=== PATIENT | male | born 1960 | race Caucasian/White ===

== ENCOUNTER → 2016-08-08 | Outpatient (CLI) | payer OTHER ==
[~2016-08-08] MED LIST: ALBUAER19 INH; AMLO-110 PO; ASPCH81X PO; ASPI-391 PO; DEXT30TA7 PO; FLUT0.15 NAE; FLUT1INH INH; HYDR25TA4 PO; IBUP-1050 PO; LBT/200 PO; LISI40TA PO; MELO7.5T6 PO; MULT-506 PO; TAMS0.4C38 PO; ZNTT/150 PO
--- NOTE | 2016-08-09 06:45 | PAP/PSG TECHNICIAN REPORT ---
[facility] Eyewear Consultant Polysomnogram Report Study name: None Report date: 08/09/2016 Study date: 08/08/2016 Referring Physician: Dianelys COOL M.D. Name: DENNIS COOL Interpreting Physician: Kacy Cool M.D. Date of : 1960 Eyewear Consultant: Jairon Carrasquillo RPSGT. Sex: Male Age: 55 StudyType: PSG Weight: 231 lbs Height: 55 years, Height 5' 7" BMI: 36.18 Medications: VENTOLIN HFA 108 (90 BASE), ZANTAC 150 MG, NORMODYNE 100 MG, ASPIRIN 81 MG, NORVASC 5 MG, LIPITOR 20 MG, FLOMAX 0.4 MG, HYDROCHLOROTHIAZIDE 25 MG Patient History PATIENT HAS HISTORY OF FEELING TIRED AND FATIGUE. HE GENERALLY STRUGGLES TO MAINTAIN SLEEP AT NIGHT AND FEELS HE DOESN'T GET RESTORATIVE SLEEP. HE ALSO HAS HISTORY OF HYPERTENSION AND SHORTNESS OF BREATH. HE IS HERE TODAY FOR AN EVALUATION OF JORGE. ESS = 7 RM 1 Parameters Monitored NPSG: E1-M2, E2-M1, Fp1-M2, Fp2-M1, F3-M2, F4-M2, F4-M1, C3-M2, C4-M2, C4-M1, O1-M2, O2-M2, O2-M1, T3-M2, T4-M1, P3-M2, P4-M1, CHIN1, CHIN2, HR, EKG, Legs, PFLOW, SNOR, FLOW, CFLOW, Tidal Volume, THOR, ABDO, SpO2, PLTH, CPRESS, ETCO2 Wave, ETCO2, pH Sleep Architecture Sleep Stages Time at Lights Off 9:49:31 PM STAGES Time (min.) TST (%) Time at Lights On 5:28:01 AM Wake 123.0 -- Total Recording Time (TRT) 459.00 min. N1 26.5 8 Total Sleep Period (TSP) 437.5 min. N2 196.0 58 Total Sleep Time (TST) 335.5min. N3 53.0 16 Awake Time 123.5 min. REM 60.0 18 Wake after Sleep Onset 102.0 min. Sleep Efficiency (SE) 73 % Sleep Onset Latency (JOSE) 21.0 min. Number of Stage 1 Shifts None Awakenings 34 Stage Changes 109 Number of REM periods 4 REM 60.0 18 REM Latency 194.5 min. NREM 275.5 82 Body Position Analysis Supine Right Left Side Prone Vertical Total Sleep Time (min.) 144.2 157.0 112.7 269.71 0.0 0.0 Total Sleep Time (%) 20% 47% 34% 80 0% N/A% Total Sleep Time REM (min.) 0.0 38.0 22.0 None 0.0 0.0 Total Sleep Time NREM (min.) 65.8 119.0 90.7 None 0.0 0.0 Intermittent Wake (min.) 78.5 30.8 13.8 None 0.0 0.0 Total Sleep Period (%) 28% None None None None None Arousals Myoclonus (PLM) * Events Count Index Events Count Index Spontaneous 28 5 Events Awake (PLMW) 270 131.7 Respiratory 34 7.0 Events Asleep w/ Arousal (PLMA) 42 7.5 PLM 40 8 Events Asleep w/o Arousal (PLMS) 302 54.0 Snoring 7 1 Total Asleep 344 61.5 Total 109 19 Total 614 80 Respiratory Analysis * CA OA MA CH H RERA Total Count 3 3 0 0 91 2 97 Index 0.5 0.5 0.0 0 16.3 0 17.7 Mean Duration 18.3 16.4 0.0 0.00 22.7 17.3 22.3 Longest Duration 20.5 20.1 0.0 0.00 0.0 18.7 50.2 Respiratory Event Summary Total Supine ~Supine Right Left Prone REM NREM Apneas Count 6 6 0 0 0 N/A 0 6 Index 1.1 5 0 0.0 0.0 N/A 0 1 Hypopneas (4% Desat) Count 91 61 30 16 14 N/A 11 80 Index 16.3 55.6 7 6.1 7.5 N/A 11.0 17.4 Apneas & All Hypopneas Count 97 67 30 16 14 N/A 11 86 Index 17.3 61 7 6 7 N/A 11.0 18.7 Respiratory Events (Loan Clerk+All Hyp+RERA) Count 97 67 32 17 15 N/A 11 86 Index 17.7 61 7 6.5 8.0 N/A 13.0 18.7 Respiratory Related Arousal Count 34 67 8 4 4 N/A 2 37 Index 7.0 28 2 2 2 N/A 2 8 Snoring Analysis Supine Right Left Prone REM NREM Total Snore duration 13.4 min Snores count 191 570 78 N/A 69 770 839 Snore mean duration 1.0 Sec Snores index 174 218 42 N/A 69.0 167.7 150.0 TST with snoring (%) 4.0% SpO2 Analysis Total REM NREM Awake <50% 0.0 min. 0.0 min. 0.0 min. 0.0 min. 51 - 60% 0.0 min. 0.0 min. 0.0 min. 0.0 min. 61 - 70% 0.0 min. 0.0 min. 0.0 min. 0.0 min. 71 - 80% 0.2 min. 0.0 min. 0.0 min. 0.2 min. 81 - 90% 68.6 min. 22.7 min. 40.1 min. 5.8 min. 91 - 100% 381.8 min. 37.3 min. 235.2 min. 109.3 min. Average 93 91 92 95 Minimum SpO2 71 87 83 71 Desaturation Event Index 17.9 14.0 19.2 18.0 # Desat. Events below 89% 35 4 22 9 Time(%) with Saturation below 89% 2.5 0.9 1.1 0.5 Time(min.) with Saturation below 89% 11.2 4.0 4.8 2.3 Heart Rate Analysis End Tidal CO2 Analysis Min (bpm) Max (bpm) Average (bpm) TSP (mins) % of TSP Awake 44 76 58 Above 55 mmHg 0.0 0.0 NREM 42 73 57 50-55 mmHg 0.0 0.0 REM 50 65 57 45-50 mmHg 0.0 0.0 Overall 42 73 57 40-45 mmHg 119.5 35.6 35-40 mmHg 112.8 33.6 30-35 mmHg 78.5 23.4 Average ETCO2 0.1 Supplemental O2 Values Minimum O2 level: None Value Start Time End Time Eyewear Consultant Comments Mr. Cool slept in the right, left and supine positions. PAC's noted. Leg movements noted. No bruxism noted. Snoring was noted and scored as a 4 on a scale of 1 through 5. (0=no snoring, 5=snoring loud enough to be heard through a closed door or down the do way) Mr. Cool awoke to use the restroom 2 times during the night. Mr. Cool stated I slept as well as I do when I am in my own bed. The final report will be interpreted and signed by a sleep physician. The completed physician report will then be placed in the patient medical record. Therapy (cm H2O) 0 TIB (min.) 458.5 TST (min.) 335.5 Sleep Onset (min.) 21.0 REM Onset From Sleep (min.) 194.5 Sleep Efficiency % 73 Wakefulness (%) 27 Wakefulness (min.) 123.5 NREM 1 (%) 8 NREM 1 (min.) 26.5 NREM 2 (%) 58 NREM 2 (min.) 196.0 NREM 3 (%) 16 NREM 3 (min.) 53.0 REM (%) 18 REM (min.) 60.0 # Arousals 109 Arousal Index 19 # Snore 839 Snore Index 150.0 AHI 17.3 AHI Supine 61 AHI Non-Supine 7 NREM AHI 18.7 REM AHI 11.0 RDI 17.7 # Obstructive Apnea 3 # Central Apnea 3 # Mixed Apnea 0 # Hypopneas 91 RERAs 2 Total Respiratory Events 110 Time Below SpO2 89% (min.) 8.8 Mean NREM SpO2 (%) 92 Mean REM SpO2 (%) 91 Mean Sleep SpO2 (%) 92 Min NREM SpO2 (%) 83 Min REM SpO2 (%) 87 Position Supine (min.) 144.2 Position Non-supine (min.) 269.7 LM Index Sleep 61.5 LM Index NREM 71.9 LM Index REM 14.0 Mean Heart Rate (bpm) 57 Min Heart Rate (bpm) 42
--- NOTE | 2016-08-13 11:35 | POLYSOMNOGRAPH REPORT ---
REFERRING PERSON: Dr. Jovan Cantrell. TUFTING SUPERVISOR: Jairon Carrasquillo. Mr. Cantrell is a 55-year-old male complaining of excessive daytime sleepiness and unrefreshing sleep. He also has sleep maintenance insomnia. He has a history of hypertension and obesity. His [place] sleepiness scale score on the evening of this study is 7. BMI is 36.18. Following the technical and digital specifications of the [place] [employer] (AASM) a standard diagnostic polysomnogram was performed monitoring EEG, EOG, EMG (chin and leg deviations), oxygen saturation, body position, digital video, respiratory effort and airflow. The sleep Stage and event scoring was based on the AASM Manual for the Scoring of Sleep and Associated Events 2007 edition. Apneas are defined as a drop in the peak thermal sensor excursion by >90% of baseline for at least 10 seconds. Hypopneas were scored using the 4% oxygen desaturation rule (4A-Medicare) and a decrease in the nasal pressure excursions by >30% of baseline for at least 10 seconds. Respiratory effort-related arousal (RERA's) is defined as a sequence of breaths lasting at least 10 seconds characterized by increasing respiratory effort or flattening of the nasal pressure waveform leading to an arousal from sleep when the sequence of breaths does not meet criteria for an apnea or hypopnea. Apnea Hypopnea index (AHI) is defined as the number of apneas and hypopneas occurring in an hour of sleep. Respiratory disturbance index (RDI) is defined as the number of apneas, hypopneas, and RERA's occurring in an hour of sleep. Mr. Cantrell's total sleep period time was 437.5 minutes. Total sleep time was 335.5 minutes. Sleep efficiency was 73%. Latency to sleep onset was 21 minutes with wake after sleep onset of 102 minutes. Total non-REM sleep time is 275.5 minutes. He spent 8% of that time in N1 sleep, 58% in N2 sleep and 16% in N3 sleep. REM latency was 194.5 minutes. Total REM sleep time was 60 minutes or 18% of total sleep time. There were 109 cortical arousals from sleep. Thirty-four of these arousals were due to respiratory events, 40 due to periodic limb movements of sleep and 7 were due to snoring. The remaining 28 were spontaneous. There were 344 periodic limb movements noted on this test. Limb movement index was 61.5. Limb movement with arousal index was 7.5. There were 3 obstructive, 3 central and no mixed apneas on this test. There were 91 hypopneas and 2 RERA. Apnea-hypopnea index was 17.3 consistent with moderately severe sleep apnea. The supine AHI was 7, REM AHI 11 and non-REM AHI is 18.7. There were 839 snoring events recorded on this test. Total sleep time with snoring was 4%. Mean saturation was 93% with desaturations less than 89% for 11.2 minutes of sleep time. Lowest saturation was 71%. There was no cardiac ectopy other than occasional premature atrial complexes noted on EKG monitoring. Heart rates ranged from a low of 42 beats per minute to a high of 73 beats per minute. End-tidal CO2 was recorded on this test. End-tidal CO2s were between 40 and 45 mmHg for 35.6% of total sleep period time, between 35-40 mmHg for 33.6% of total sleep period time and between 30 and 35 mmHg for 23.4% of total sleep period time. IMPRESSION AND PLAN: Mr. Cantrell is a 55-year-old male with evidence of moderately severe sleep apnea and mild nocturnal hypoxemia on this sleep study. 1. This patient would likely benefit from positive airway pressure therapy. He should return to the sleep lab for a full night titration and then based on those results be started on equipment at home. A download from his machine should be reviewed in 1 month both to check compliance as well as AHI and further pressure adjustments can occur at that time. 2. Alternatively, this patient could be started on auto titrating CPAP with pressures of 5-15 cm. A download from his machine can be reviewed in 1 month and he could be set to optimal pressure at that time. 3. If this patient is unwilling or unable to tolerate CPAP therapy, he could be referred to ear, nose and throat or oral surgery/dental medicine (if appropriate) to discuss alternative treatments for sleep disordered breathing.
== END | disposition home or self-care (01) ==
LOC: C.NEUR 21:00
PROVIDERS: ATTEND Family Medicine
DX: R06.02 Shortness of breath (principal); G47.30 Sleep apnea, unspecified; I10 Essential (primary) hypertension

== ENCOUNTER → 2016-10-25 | Day surgery (SDC) | payer OTHER ==
[2016-10-16 15:12] VITALS: Ht 170.2 cm; Wt 106.8 kg
[~2016-10-25] VITALS: Ht 170.2 cm; Wt 106.8 kg
[~2016-10-25] MED LIST changes: -ALBUAER19 INH; +DEXAMETHASONE SOD INJ 4 MG/ML VIAL ONE; -DEXT30TA7 PO; -IBUP-1050 PO; +LIDOCAINE HCL 1% MPF 5 ML VIAL ONE; -MELO7.5T6 PO; -MULT-506 PO
--- NOTE | 2016-10-25 08:43 | History & Physical Bridge - SC ---
H&P Re-Evaluation Bridge Note: I have examined the patient, reviewed the History & Physical and in the interval since the performance of the History & Physical I have noted the following changes of clinical significance: No changes noted
[2016-10-25 09:05] VITALS: TEMP 36.8
--- NOTE | 2016-10-25 09:07 | Discharge Instructions-SurgCtr ---
Discharge Instructions Date of Service Oct 25, 2016. Visit Reason for Visit: Spinal Stenosis Discharge Discharge Diagnosis / Problem: stenosis Discharge Goals Goal(s): Improve function Activity Recommendations Activity Limitations: resume your previous activity Anesthesia . Post Anesthesia Instructions: If you have had General Anesthesia or IV Sedation: * Do not drive today. * Resume driving when surgeon permits. * Do not make important decisions or sign legal documents today. * Call surgeon for: 1. Temperature elevations greater than 101 degrees F. 2. Uncontrollable pain. 3. Excessive bleeding. 4. Persistent nausea and vomiting. 5. Medication intolerance (nausea, vomiting or rash). * For nausea and vomiting use only clear liquids such as: tea, soda, bouillon until nausea subsides, then gradually increase diet as tolerated. * If you have any concerns or questions, call your surgeon's office. If physician is unavailable and it is an emergency, call 911 or go to the nearest emergency room. . Diet Recommendations Home Diet: no limitations Procedures Procedures Performed: EPIDURAL STEROID INJECTION L4-L5, L5-S1 Pending Studies Studies pending at discharge: no Medical Emergencies . Who to Call and When: Medical Emergencies: If at any time you feel your situation is an emergency, please call 911 immediately. . Non-Emergent Contact Non-Emergency issues call your: Primary Care Provider . . "Provider Documentation" section prepared by Estuardo Owusu. .
--- NOTE | 2016-10-25 09:07 | [facility] Post Operative Brief Note ---
Immediate Operative Summary Operative Date Oct 25, 2016. Pre-Operative Diagnosis DISC HERNIATION L4-L5, L5-S1 Post-Operative Diagnosis SAME Procedure(s) Performed EPIDURAL STEROID INJECTION L4-L5, L5-S1 Surgeon DR. Maureen LOWRY Bi Data Architect Surgeon(s) 0 Estimated Blood Loss 0 Findings stenosis Specimens 0 Complication(s) None Disposition Recovery Room / PACU
[2016-10-25 09:18] VITALS: BP 127/81; PULSE 72; O2SAT 95
--- NOTE | 2016-10-25 09:19 | OPERATIVE REPORT ---
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 POSTOPERATIVE DIAGNOSIS: Same. PROCEDURE: Include epidural steroid injection L4-5, L5-S1 lumbar spine. SURGEON: Dr. Owusu. The patient was taken to the minor procedure room and placed prone, prepped, draped sterile. The 22-gauge Tuohy needle advanced to the epidural space at 4-5 and 5-1. One mL of dexamethasone injected to each area without incident. He tolerated it well. Returned to PACU stable. No complications. I attest to the content of the Intraoperative Record and any orders documented therein. Any exception s are noted below.
== END | disposition home or self-care (01) ==
LOC: X.SURG 07:34
PROVIDERS: ATTEND Orthopaedic Surgery Orthopaedic Surgery of the Spine
DX: M48.06 Spinal stenosis, lumbar region (principal); I10 Essential (primary) hypertension; J45.909 Unspecified asthma, uncomplicated; Z90.89 Acquired absence of other organs

== ENCOUNTER → 2017-07-10 | Outpatient (CLI) | payer OTHER ==
[~2017-07-10] MED LIST changes: -DEXAMETHASONE SOD INJ 4 MG/ML VIAL ONE; -LIDOCAINE HCL 1% MPF 5 ML VIAL ONE; +RANI150T85 PO; -ZNTT/150 PO
--- NOTE | 2017-07-10 13:23 | DIAGNOSTIC IMAGING REPORT ---
(CHEST) THORAX WITHOUT CT DOSE: 1008.12 mGy.cm CLINICAL HISTORY: 56 years-old Male with R91.1 Lung nodule. Follow-up study in a patient with lung nodules TECHNIQUE: Multiaxial CT images of the chest were performed without contrast. A dose lowering technique was utilized adhering to the principles of ALARA. COMPARISON: Chest CT 01/20/2016 FINDINGS: The thyroid appears homogeneous. No pathologically enlarged lymph nodes of the chest identified. Calcified left hilar lymph nodes compatible with prior granulomatous disease. Heart is normal in size with coronary arterial disease. No large pericardial effusion. Thoracic aorta is normal in course and caliber without aneurysm. There is no pneumothorax, pleural effusion or focal airspace consolidation. Subpleural cystic changes are noted within the medial right lung apex. Calcified granulomas of the left upper lobe are noted. Minimal subsegmental tree-in-bud nodularity of the right lower lobe is seen on image 200 series 4. Several scattered solid noncalcified pulmonary nodules redemonstrated. Subpleural linear 6 mm nodule of the lingula noted on image 157 series 4, unchanged. 3 mm nodule of the left lung apex, image 79 series 4, also unchanged. A few scattered 2 to 3 mm nodules throughout the right lung also appear unchanged. There is a subpleural 4 mm nodule of the right upper lobe on image 19 series 4, also unchanged. No new or enlarging pulmonary nodules identified. Central airways are patent. Calcified glomus are seen throughout the spleen. Punctate nonobstructing calculus of the interpolar left kidney. Cholelithiasis. Hepatic steatosis. Soft tissues are unremarkable. Bones appear intact. IMPRESSION: 1. Unchanged size and appearance of the scattered bilateral solid pulmonary nodules measuring up to 6 mm. 2. Minimal subsegmental tree-in-bud nodularity of the right lower lobe suggests infectious or inflammatory bronchiolitis. 3. Prior granulomatous disease. 4. Hepatic steatosis. 5. Cholelithiasis. 6. Punctate nonobstructing calculus of the interpolar right kidney. Please refer to below summary of Fleischner criteria recommendations for follow-up of incidental CT nodules (oDnna Bonilla, Guidelines for management of small pulmonary nodules detected on CT scans: A statement from the Fleischner Society, Radiology 237: [phone].) SOLID NODULES Multiple nodules size: <6 mm * Low risk patients: no routine follow-up * high risk patients: optional CT at 12 months Multiple nodules size: 6-8 mm * Low risk patients: follow-up at 3-6 months, then consider further follow-up at 18-24 months * high risk patients: follow-up at 3-6 months, then at 18-24 months if no change Note: newly detected indeterminate nodule in persons 35 years of age or older. * Low risk patients: minimal or absent history of smoking and/or other known risk factors * high risk patients: history of smoking or of other known risk factors (e.g. first degree relative with lung cancer, or exposure to asbestos, radon, uranium) * if a nodule up to 8 mm is partly solid or is ground glass further follow-up is required after 24 months to exclude possible slow growing adenocarcinoma (CATRACHO) The above report was generated using voice recognition software. It may contain grammatical, syntax or spelling errors. Electronically signed by: Isaac Kapoor M.D. 07/10/2017 1:22 PM Dictated Date/Time: 07/10/2017 1:12 PM
== END | disposition home or self-care (01) ==
LOC: C.CTS 13:04
PROVIDERS: ATTEND Internal Medicine
DX: R91.1 Solitary pulmonary nodule (principal); K76.0 Fatty (change of) liver, not elsewhere classified; K80.20 Calculus of gallbladder without cholecystitis without obstruction; N20.0 Calculus of kidney

== ENCOUNTER → 2017-08-23 | Outpatient (CLI) | payer OTHER ==
[2017-08-23 09:34] LABS: BASO % 0.4 %; BASO ABS # 0.03 K/uL (0-0.2); EOS % 3.7 %; EOS ABS # 0.28 K/uL (0-0.5); HEMATOCRIT 40.9 % (42-52); HEMOGLOBIN 13.6 g/dL (14.0-18.0); IG# 0.02 K/uL (0.00-0.02); LYMPH % 27.5 %; LYMPH ABS # 2.09 K/uL (1.2-3.4); MEAN CELL VOLUME 83.3 fL (80-100); MEAN CORPUSCULAR HEMOGLOBIN 27.7 pg (25-34); MEAN CORPUSCULAR HGB CONC 33.3 g/dl (32-36); MEAN PLATELET VOLUME 9.9 fL (7.4-10.4); MONO % 7.8 %; MONO ABS # 0.59 K/uL (0.11-0.59); NEUT % 60.3 %; NEUT ABS # 4.59 K/uL (1.4-6.5); PLATELET COUNT 263 K/uL (130-400); RED CELL DISTRIBUTION WIDTH SD 42.4 fL (36.4-46.3)
[2017-08-23 10:07] LABS: ALBUMIN 4.1 gm/dl (3.4-5.0); ALT/SGPT 37 U/L (12-78); AST/SGOT 15 U/L (15-37); BLOOD UREA NITROGEN 23 mg/dl (7-18); CARBON DIOXIDE 26 mmol/L (21-32); CHOLESTEROL 204 mg/dl (0-200); CREATININE 1.22 mg/dl (0.60-1.40); GLUCOSE 113 mg/dl (70-99); LIPASE 167 U/L (73-393); POTASSIUM 3.7 mmol/L (3.5-5.1); SODIUM 139 mmol/L (136-145)
[2017-08-23 10:11] LABS: ALKALINE PHOSPHATASE 52 U/L (45-117); LDL CHOLESTEROL CALCULATED 107 mg/dl
== END ==
LOC: C.LAB1850 08:26
PROVIDERS: ATTEND Internal Medicine
DX: R31.29 Other microscopic hematuria (principal); E78.5 Hyperlipidemia, unspecified; I10 Essential (primary) hypertension; N40.0 Benign prostatic hyperplasia without lower urinary tract symptoms; D64.9 Anemia, unspecified; R74.8 Abnormal levels of other serum enzymes

== ENCOUNTER 2018-09-13 01:28 | Inpatient (IN) ==
--- OUTSIDE RECORDS SUMMARY | 2018-09-13 01:31 | External Medical Summary | Continuity of Care Document ---
:1960 Author Name Kristy Vanegas, Provider Address Unavailable Unavailable , Care Team Providers Name Role Phone Luke Vanegas, Kamilah Unavailable [email or web address], [email or web address] CANDIE STOKES M.D., KAMILAH V Unavailable Un available Unavailable Unavailable Unavailable Problems Esophageal reflux (530.81) (K21.9) Tiredness (780.79) (R53.83) Internal hemorrhoids (455.0) (K64.8) Colon polyps (211.3) (K63.5) Dust exposure (V87.39) (Z77.29) Ganglion cyst of wrist, right (727.41) (M67.431) Sleep apnea (780.57) (G47.30) Diverticulosis of colon (562.10) (K57.30) Prostatic hyperplasia (600.90) (N40.0) Screen for colon cancer (V76.51) (Z12.11) Elevated lipase (790.5) (R74.8) Microscopic hematuria (599.72) (R31.29) Hypertension (401.9) (I10) Reactive airway disease (493.90) (J45.909) Multiple pulmonary nodules (793.19) (R91.8) Cramp of limb (729.82) (R25.2) Bilateral numbness and tingling of arms and legs (782.0) (R2 0.0) Hyperlipidemia (272.4) (E78.5) Anemia (285.9) (D64.9) Lung nodule (793.11) (R91.1) Back pain (724.5) (M54.9) Flu vaccine need (V04.81) (Z23) Hyperglycemia (790.29) (R73.9) Chronic low back pain (724.2) (M54.5) Lumbar disc disease with radiculopathy (722.10) (M51.16) Facet hypertrophy of lumbar region (721.3) (M47.816) Tingling (782.0) (R20.2) Sacral radiculopathy (724.4) (M54.18) Lumbosacral radiculopathy (724.4) (M54.17) Disc degeneration, lumbar (722.52) (M51.36) Acute bronchitis (466.0) (J20.9) Allergies and Adverse Reactions Atorvastatin Calcium TABS (Allergy) hydrALAZINE HCl TABS (Allergy) Reaction: Headache Procardia (Allergy) Medications methylPREDNISolone 4 MG Oral Tablet Therapy Pack; 1 pa ck as directed KENYATTA Merchant Start: 17-Jul-2018 Quantity: 1 21 Tablet Pack Refills: 0 Lovastatin 10 MG Oral Tablet; TAKE 1 TABLET AT BEDTIME . Romina Butler Start: 05-Sep-2017 Quantity: 90 Ralitsa Refills: 1 Lisinopril 40 MG Oral Tablet; take 1 tablet by mouth o nce daily as directed Romina Butler Start: 06-Aug-2018 Quantity: 90 Ralitsa Refills: 1 Labetalol HCl - 200 MG Oral Tablet; take 1 tablet by m outh once daily Romina Butler Start: 06-Aug-2018 Quantity: 60 Ral[place]a Refills: 1 amLODIPine Besylate 10 MG Oral Tablet; TAKE 1 TABLET D AILY DIRECTED. Romina Butler Start: 16-Aug-2016 Quantity: 1 Ralitsa 90 Tablet Bottle Refills: 3 hydroCHLOROthiazide 25 MG Oral Tablet; TAKE ONE TABLET BY MOUTH ONCE DAILY Romina Butler Start: 04-Jan-2018 Quantity: 90 [place]al[place]a Refills: 3 raNITIdine HCl - 150 MG Oral Tablet; TAKE 1 TABLET ANA PAULA RY 12 HOURS DAILY. Romina Butler Start: 13-Jul-2013 Quantity: 60 Ral[place]a Refills: 5 Aspirin EC 81 MG Oral Tablet Delayed Release; TAKE 1 T ABLET DAILY. Yuliya Stokes M.D. Start: 15-Feb-2017 Refills: 5 [place]al[place] Excedrin Extra Strength 250-250-65 MG Or al Tablet; TAKE up tp 3 tablets DAILY. Romina Butler Start: 16-Aug-2016 Refills: 0 [place]al[place]a Breo Ellipta 100-25 MCG/INH Inhalation A erosol Powder Breath Activated; USE 1 INHALATION ONCE DAILY. Romina Butler Start: 16-Aug-2016 Quantity: 1 [place] Refills: 5 Cyclobenzaprine HCl - 5 MG Oral Tablet; TAKE 1 TABLET 2 TIMES DAILY NEEDED FOR PAIN KENYATTA Merchant Tia Start: 26-May-2018 Quantity: 30 Refills: 0 Tamsulosin HCl - 0.4 MG Oral Capsule; TAKE ONE CAPSULE BY MOUTH ONCE DAILY Romina Butler Start: 01-Apr-2018 Quantity: 90 [place]al[place] Refills: 3 Ventolin HFA 108 (90 Base) MCG/ACT Inhal ation Aerosol Solution; INHALE 1 TO 2 PUFFS EVERY 4 TO 6 HOURS NEEDED. Romina Butler Start: 13-Mar-2016 Quantity: 1 Ral[place]a Refills: 5 Procedures History of Hernia Repair Status: Complet ed History of Appendectomy Status: Complete d History of Tonsillectomy Status: Complet ed History of Lipectomy Status: Completed Immunizations Tetanus (Adsorbed) On: 2010 Influenza On: 17-Jan-2016 Pneumovax 23 25 MCG/0.5ML Injection Injectable On: 17-Aug-19 17 13:28 Lot #: [id number], [employer] Fluzone Quadrivalent 0.5 ML Intramuscular Suspension On: Feb-2017 14:04 Lot #: [id number], [employer] Flublok Quadrivalent 0.5 ML Intramuscular Solution Pre filled Syringe On: 11-Mar-2018 11:37 Lot #: [id number], [employer] Family History Father Family history of Diabetes Mellitus (V18.0) Status: Active Family history of Heart Disease (V17.49) Status: Active Family history of Hyperlipidemia Status: Active Family history of Stroke Syndrome (V17.1) Status: Active Mother Family history of Diabetes Mellitus (V18.0) Status: Active Family history of Hyperlipidemia Status: Active Social History - Smoking Status Former smoker Plan of Treatment Planned Observations Planned Goals not documented Results No Known Results Results not documented Encounters Appointment; Samara Merchant PA-C 17-Jul-2018 14:15 Encounter Diagnosis: Problem not documented Appointment; Samara Merchant PA-C 26-May-2018 15:00 Encounter Diagnosis: Problem not documented Appointment; Kamilah Butler M.D. 11-Mar-2018 11:00 Encounter Diagnosis: Problem not documented Appointment; Katheryn Williamson III, M.D. 09-Sep-2017 14:00 Encounter Diagnosis: Problem not documented Appointment; Kamilah Butler M.D. 05-Sep-2017 7:20 Encounter Diagnosis: Problem not documented Appointment; Kamilah Butler M.D. 13:20 Encounter Diagnosis: Problem not documented Appointment; Kamilah Butler M.D. 9:00 Encounter Diagnosis: Problem not documented
[2018-09-13] MEDS ORDERED: SODIUM CHLORIDE 0.9% 1000ML 1,000 ML IV ONE ×2 (01:51→03:33)
[2018-09-13] MEDS ORDERED: KETOROLAC TROMETHAMINE 15 MG/ML VIAL IV STA (01:51)
[2018-09-13] MEDS ORDERED: ACETAMINOPHEN 1,000 MG/100 ML VIAL IV STA (01:51)
--- NOTE | 2018-09-13 01:55 | Emergency Department Note ---
History of Present Illness General Chief complaint: Dizziness Stated complaint: BURNING PAIN LEFT SIDE OF BODY, VOMITING, DIZZY History of Present Illness Maximum Pain Intensity: 3 This 58-year-old presents to the ER complaining of headache, body aches, fever, lightheadedness Location: Generalized Quality: Achiness Severity: Moderate Duration: Today Timing: Today Context: Symptoms got worse and patient came in Modifying factors: better with rest; worse with activity Patient states he feels feverish. He did not take a temperature. He took Excedrin. Patient denies chest pain, dyspnea, abdominal pain, neck stiffness, sore throat, abdominal pain, vomiting, diarrhea. Patient states he does not drink much water. He has only had a Twinkie and a candy with sweet tea today. Home Medications Home Medications Medication Instructions Recorded Confirmed Type aspirin 81 mg tablet,delayed 81 mg PO DAILY 06/20/18 09/13/18 History release rhxwlqs-hngvxfdlfsirm-cxrtgiet 250 2 tab PO Q6H PRN 06/20/18 09/13/18 History mg-250 mg-65 mg tablet fluticasone furoate 100 1 inha INH DAILY 06/20/18 09/13/18 History mcg-vilanterol 25 mcg/dose inhalation powder hydrochlorothiazide 25 mg tablet 25 mg PO DAILY 06/20/18 09/13/18 History lisinopril 40 mg tablet 40 mg PO DAILY 06/20/18 09/13/18 History tamsulosin 0.4 mg capsule 0.4 mg PO DAILY 06/20/18 09/13/18 History amlodipine 10 mg PO DAILY 09/13/18 09/13/18 History Allergies Allergy/AdvReac Type Severity Reaction Status Date / Time No Known Allergies Allergy Mild Verified 09/13/18 02:32 Past Med/Surg History Medical History Asthma (Chronic) Hypertension (Chronic) High cholesterol (Chronic) Surgical History H/O inguinal hernia repair History of appendectomy History of tonsillectomy H/O inguinal hernia repair History of appendectomy History of tonsillectomy Social History Current Living Situation: Significant Other Current Living Situation Comment: primary caregiver for 17 year old grand daughter current occupational status: employed Feels Safe at Home: Yes Smoking Status: Former smoker Tobacco Type: cigarettes Cigarettes Per Day: 1 ppd Hx Alcohol Use: Yes Alcohol type: beer Hx Substance Use: No Review of Systems All systems reviewed & are unremarkable except as noted in HPI & below Physical Exam Vital Signs Vital Signs - 24 hr 09/13/18 01:31 09/13/18 02:00 09/13/18 02:01 Temperature 37.7 C H Temperature Source Oral Sepsis Recent Fever Within 48 Hours No Sepsis Action Taken by Nursing No Action Required Pulse Rate 89 81 Pulse Rate [Apical] Pulse Rhythm Regular Pulse Rhythm [Apical] Pulse Strength [Apical] Respiratory Rate 20 20 Respiratory Effort / Characteristics Respiratory Depth Normal Blood Pressure 126/84 Blood Pressure [Left Arm] Blood Pressure [Right Arm] Blood Pressure Mean 98 Blood Pressure Mean [Left Arm] Blood Pressure Mean [Right Arm] Blood Pressure Position Sitting Blood Pressure Position [Left Arm] Blood Pressure Position [Right Arm] Pulse Oximetry 95 95 95 Oxygen Delivery Method Room Air Room Air 09/13/18 02:28 09/13/18 03:46 09/13/18 05:00 Temperature Temperature Source Sepsis Recent Fever Within 48 Hours Sepsis Action Taken by Nursing Pulse Rate Pulse Rate [Apical] 72 60 65 Pulse Rhythm Pulse Rhythm [Apical] Regular Regular Regular Pulse Strength [Apical] Normal Normal Normal Respiratory Rate 16 16 16 Respiratory Effort / Characteristics Non-Labored Non-Labored Non-Labored Respiratory Depth Normal Normal Normal Blood Pressure Blood Pressure [Left Arm] 126/81 112/68 Blood Pressure [Right Arm] 127/72 126/81 Blood Pressure Mean Blood Pressure Mean [Left Arm] 96 82 Blood Pressure Mean [Right Arm] 90 96 Blood Pressure Position Blood Pressure Position [Left Arm] Lying Lying Blood Pressure Position [Right Arm] Sitting Pulse Oximetry 97 96 98 Oxygen Delivery Method Room Air Room Air 09/13/18 05:30 Temperature Temperature Source Sepsis Recent Fever Within 48 Hours Sepsis Action Taken by Nursing Pulse Rate Pulse Rate [Apical] 59 L Pulse Rhythm Pulse Rhythm [Apical] Regular Pulse Strength [Apical] Respiratory Rate 16 Respiratory Effort / Characteristics Non-Labored Respiratory Depth Normal Blood Pressure Blood Pressure [Left Arm] 127/74 Blood Pressure [Right Arm] Blood Pressure Mean Blood Pressure Mean [Left Arm] 91 Blood Pressure Mean [Right Arm] Blood Pressure Position Blood Pressure Position [Left Arm] Lying Blood Pressure Position [Right Arm] Pulse Oximetry 96 Oxygen Delivery Method Room Air VITALS: Vitals are noted on the nurse's note and reviewed by myself. Vital signs low-grade fever. GENERAL: Pleasant male, in no acute distress, nondiaphoretic, well-developed well-nourished. SKIN: The skin was without rashes, erythema, edema, or bruising. There is no tenting of the skin. Capillary reflex less than 2 seconds. HEAD: Normocephalic atraumatic. EARS: External auditory canals clear, tympanic membranes pearly kwong without erythema or effusion bilaterally. EYES: Pupils equal round and reactive to light and accommodation. Conjunctivae without injection, sclerae without icterus. Extraocular movements intact. NOSE: Patent, turbinates without inflammation or discharge. No sinus tenderness. MOUTH: Mucous membranes mildly dry. Pharynx without erythema or exudate. Uvula midline. Airway patent. Tongue does not deviate. NECK: Supple without nuchal rigidity. No lymphadenopathy. No thyromegaly. Cervical spine is nontender. No JVD. HEART: Regular rate and rhythm LUNGS: Clear to auscultation bilaterally without wheezes, rales or rhonchi. No retractions or accessory muscle use. ABDOMEN: Positive bowel sounds x 4. Normal tympanic percussion. Soft, nontender, without masses or organomegaly. Camargo sign negative. No guarding or rebound tenderness. No CVA tenderness MUSCULOSKELETAL: No muscle atrophy, erythema, or edema noted. NEURO: Patient was alert and oriented to person place and time. Normal sensation to light and sharp touch. No focal neurological deficits. Course Administered Medications Levofloxacin/Dextrose (Levaquin/D5w) 750 mg in 150 mls @ 100 mls/hr IV NOW STA Stop: 09/13/18 05:55 Last Admin: 09/13/18 04:41 Dose: 100 mls/hr Documented by: [id number] Discontinued Medications Acetaminophen (Ofirmev) 1,000 mg in 100 mls @ 400 mls/hr IV NOW STA Stop: 09/13/18 02:05 Last Infusion: 09/13/18 03:48 Dose: 0 mls/hr Documented by: [id number] Admin: 09/13/18 02:21 Dose: 400 mls/hr Documented by: [id number] Sodium Chloride (Nss 1000ml) 1,000 mls @ 999 mls/hr IV .Q1H1M ONE Stop: 09/13/18 02:51 Last Infusion: 09/13/18 03:49 Dose: 0 mls/hr Documented by: [id number] Admin: 09/13/18 02:21 Dose: 999 mls/hr Documented by: [id number] Sodium Chloride (Nss 1000ml) 1,000 mls @ 999 mls/hr IV .Q1H1M ONE Stop: 09/13/18 04:33 Last Infusion: 09/13/18 05:02 Dose: 0 mls/hr Documented by: [id number] Admin: 09/13/18 03:43 Dose: 999 mls/hr Documented by: [id number] Ketorolac Tromethamine (Toradol) 10 mg IV NOW STA Stop: 09/13/18 01:52 Last Admin: 09/13/18 02:20 Dose: 15 mg Documented by: [id number] Medical Decision Making Medical Records Attestation: I reviewed the patient's medical records. Home Medications Current Medication List: was personally reviewed by me Laboratory Data Attestation: I reviewed the patient's lab results. Result diagrams: 09/13/18 02:05 09/13/18 02:05 Lab Results 09/13/18 09/13/18 09/13/18 Range/Units 01:55 02:05 02:05 WBC 15.87 H (4.8-10.8) K/uL RBC 4.69 L (4.7-6.1) M/uL Hgb 13.2 L (14.0-18.0) g/dL Hct 38.5 L (42-52) % MCV 82.1 (80-100) fL MCH 28.1 (25-34) pg MCHC 34.3 (32-36) g/dL RDW Std Deviation 43.0 (36.4-46.3) fL RDW Coeff of Laura 14.3 (11.5-14.5) % Plt Count 261 (130-400) K/uL MPV 9.5 (7.4-10.4) fL Immature Gran % (Auto) 0.3 % Neut % (Auto) 90.9 % Lymph % (Auto) 4.0 % Piute % (Auto) 4.5 % Eos % (Auto) 0.1 % Baso % (Auto) 0.2 % Immature Gran # (Auto) 0.04 H (0.00-0.02) K/uL Neut # (Auto) 14.44 H (1.4-6.5) K/uL Lymph # (Auto) 0.63 L (1.2-3.4) K/uL Piute # (Auto) 0.71 H (0.11-0.59) K/uL Eos # (Auto) 0.02 (0-0.5) K/uL Baso # (Auto) 0.03 (0-0.2) K/uL ESR (0-14) mm/hr PT 10.8 (9.0-12.0) Seconds INR 1.1 (0.9-1.1) APTT 23.6 (21.0-31.0) Seconds PTT Ratio 0.9 Sodium (136-145) mmol/L Potassium (3.5-5.1) mmol/L Chloride (98-107) mmol/L Carbon Dioxide (21-32) mmol/L Anion Gap (3-11) BUN (7-18) mg/dl Creatinine (0.6-1.4) mg/dl Est Cr Clr Drug Dosing ml/min Est GFR ( Amer) Est GFR (Non-Af Amer) BUN/Creatinine Ratio (10-20) Glucose (70-99) mg/dl POC Lactic Acid Ren (0.90-1.70) mmol/L Calcium (8.5-10.1) mg/dl Total Bilirubin (0.2-1) mg/dl AST (15-37) U/L ALT (12-78) U/L Alkaline Phosphatase (45-117) U/L Troponin I (0-0.045) ng/ml C-Reactive Protein (0-0.29) mg/dl Total Protein (6.4-8.2) gm/dl Albumin (3.4-5.0) gm/dl Globulin (2.5-4.0) gm/dl Albumin/Globulin Ratio (0.9-2) Specimen Hemolysis Urine Color Urine Appearance (Clear) Urine pH (4.5-7.5) Ur Specific Kulm (1.000-1.030) Urine Protein (Negative) Urine Glucose (UA) (Negative) Urine Ketones (Negative) Urine Blood (Negative) Urine Nitrite (Negative) Urine Bilirubin (Negative) Urine Urobilinogen (Negative) Ur Leukocyte Esterase (Negative) Lyme Disease IgG Ab (Negative) Lyme Disease IgM Ab (Negative) Influenza Type A (PCR) Neg for Influ A (Neg) Influenza Type B (PCR) Neg for Influ B (Neg) 09/13/18 09/13/18 09/13/18 Range/Units 02:05 02:05 02:05 WBC (4.8-10.8) K/uL RBC (4.7-6.1) M/uL Hgb (14.0-18.0) g/dL Hct (42-52) % MCV (80-100) fL MCH (25-34) pg MCHC (32-36) g/dL RDW Std Deviation (36.4-46.3) fL RDW Coeff of Laura (11.5-14.5) % Plt Count (130-400) K/uL MPV (7.4-10.4) fL Immature Gran % (Auto) % Neut % (Auto) % Lymph % (Auto) % Piute % (Auto) % Eos % (Auto) % Baso % (Auto) % Immature Gran # (Auto) (0.00-0.02) K/uL Neut # (Auto) (1.4-6.5) K/uL Lymph # (Auto) (1.2-3.4) K/uL Piute # (Auto) (0.11-0.59) K/uL Eos # (Auto) (0-0.5) K/uL Baso # (Auto) (0-0.2) K/uL ESR 9 (0-14) mm/hr PT (9.0-12.0) Seconds INR (0.9-1.1) APTT (21.0-31.0) Seconds PTT Ratio Sodium 137 (136-145) mmol/L Potassium 3.5 (3.5-5.1) mmol/L Chloride 104 (98-107) mmol/L Carbon Dioxide 26 (21-32) mmol/L Anion Gap 7.0 (3-11) BUN 20 H (7-18) mg/dl Creatinine 1.39 (0.6-1.4) mg/dl Est Cr Clr Drug Dosing 66.1 ml/min Est GFR ( Amer) 63.8 Est GFR (Non-Af Amer) 55.1 BUN/Creatinine Ratio 14.3 (10-20) Glucose 146 H (70-99) mg/dl POC Lactic Acid Ren (0.90-1.70) mmol/L Calcium 9.4 (8.5-10.1) mg/dl Total Bilirubin 0.6 (0.2-1) mg/dl AST 24 (15-37) U/L ALT 29 (12-78) U/L Alkaline Phosphatase 51 (45-117) U/L Troponin I 0.638 H* (0-0.045) ng/ml C-Reactive Protein 2.47 H (0-0.29) mg/dl Total Protein 7.2 (6.4-8.2) gm/dl Albumin 4.0 (3.4-5.0) gm/dl Globulin 3.2 (2.5-4.0) gm/dl Albumin/Globulin Ratio 1.3 (0.9-2) Specimen Hemolysis Urine Color Urine Appearance (Clear) Urine pH (4.5-7.5) Ur Specific Kulm (1.000-1.030) Urine Protein (Negative) Urine Glucose (UA) (Negative) Urine Ketones (Negative) Urine Blood (Negative) Urine Nitrite (Negative) Urine Bilirubin (Negative) Urine Urobilinogen (Negative) Ur Leukocyte Esterase (Negative) Lyme Disease IgG Ab Negative (Negative) Lyme Disease IgM Ab Negative (Negative) Influenza Type A (PCR) (Neg) Influenza Type B (PCR) (Neg) 09/13/18 09/13/18 Range/Units 02:25 04:40 WBC (4.8-10.8) K/uL RBC (4.7-6.1) M/uL Hgb (14.0-18.0) g/dL Hct (42-52) % MCV (80-100) fL MCH (25-34) pg MCHC (32-36) g/dL RDW Std Deviation (36.4-46.3) fL RDW Coeff of Laura (11.5-14.5) % Plt Count (130-400) K/uL MPV (7.4-10.4) fL Immature Gran % (Auto) % Neut % (Auto) % Lymph % (Auto) % Piute % (Auto) % Eos % (Auto) % Baso % (Auto) % Immature Gran # (Auto) (0.00-0.02) K/uL Neut # (Auto) (1.4-6.5) K/uL Lymph # (Auto) (1.2-3.4) K/uL Pi[place] # (Auto) (0.11-0.59) K/uL Eos # (Auto) (0-0.5) K/uL Baso # (Auto) (0-0.2) K/uL ESR (0-14) mm/hr PT (9.0-12.0) Seconds INR (0.9-1.1) APTT (21.0-31.0) Seconds PTT Ratio Sodium (136-145) mmol/L Potassium (3.5-5.1) mmol/L Chloride (98-107) mmol/L Carbon Dioxide (21-32) mmol/L Anion Gap (3-11) BUN (7-18) mg/dl Creatinine (0.6-1.4) mg/dl Est Cr Clr Drug Dosing ml/min Est GFR ( Amer) Est GFR (Non-Af Amer) BUN/Creatinine Ratio (10-20) Glucose (70-99) mg/dl POC Lactic Acid Ren 1.75 H (0.90-1.70) mmol/L Calcium (8.5-10.1) mg/dl Total Bilirubin (0.2-1) mg/dl AST (15-37) U/L ALT (12-78) U/L Alkaline Phosphatase (45-117) U/L Troponin I (0-0.045) ng/ml C-Reactive Protein (0-0.29) mg/dl Total Protein (6.4-8.2) gm/dl Albumin (3.4-5.0) gm/dl Globulin (2.5-4.0) gm/dl Albumin/Globulin Ratio (0.9-2) Specimen Hemolysis Urine Color Yellow Urine Appearance Clear (Clear) Urine pH 7.5 (4.5-7.5) Ur Specific Kulm 1.018 (1.000-1.030) Urine Protein Negative (Negative) Urine Glucose (UA) Negative (Negative) Urine Ketones Negative (Negative) Urine Blood Negative (Negative) Urine Nitrite Negative (Negative) Urine Bilirubin Negative (Negative) Urine Urobilinogen Negative (Negative) Ur Leukocyte Esterase Negative (Negative) Lyme Disease IgG Ab (Negative) Lyme Disease IgM Ab (Negative) Influenza Type A (PCR) (Neg) Influenza Type B (PCR) (Neg) Imaging Data Attestation: I personally reviewed and interpreted this imaging study as follows: MDM Narrative Prior records/ancillary studies reviewed. Triage Nursing notes reviewed. Additional history obtained from family. The patient's history was concerning for fever. Differential diagnosis: Etiologies such as viral syndrome, otitis, pharyngitis, pneumonia, influenza, meningitis, urinary tract infection, sepsis, bacteremia, as well as others were entertained. Physical examination: Patient is alert, interactive and tolerating fluids ER treatment provided: IV fluids, Tylenol, Toradol On reassessment the patient felt better. Diagnostics interpreted by me: ECG: Normal sinus, normal intervals, sinus arrhythmia, no acute ST-T wave changes. Impression normal sinus rhythm interpreted by myself. Repeat EKG is unchanged I think arrhythmia is unlikely. EKG shows normal sinus rhythm with no interval abnormalities such as QT prolongation or WPW. There are no findings to suggest Brugada syndrome. Cardiac monitoring in the emergency department reveals no tachycardic or bradycardic dysrhythmia. Hypertrophic cardiomyopathy was considered but there are no clear historical elements pointing toward this. EKG is not suggestive. The QRS voltage is not extremely large and there are no suggestive Q waves. The labs revealed elevated troponin. Mildly elevated lactic. Leukocytosis. Blood cultures pending Imaging studies: CT HEAD: No ICH, mass effect or edema. No evidence of acute cortical stroke. Focal deep white matter hypodensity noted in the right frontal region is nonspecific in appearance. Statistically, this represents asymmetric microvascular changes. If there is clinical concern for alternative process such as a focal demyelinating lesion, nonemergent MRI would provide greater detail in this region. Visualized sinuses and mastoid air cells are clear. Radiologist: Javier Bell MD Chest x-ray with no acute consolidation, pneumothorax or free air per my interpretation Consultation: A consultation was placed with hospitalist, Dr. Rivera. The case was discussed and diagnostics were reviewed. The patient was evaluated in the ER for further treatment. This appears to be consistent with elevated troponin with concerns for sepsis. Patient had elevated white blood count. Elevated lactic. He was febrile. Elevated troponin. Medicine was consulted. Patient is agreeable treatment plan of admission. By the evaluation outlined above emergent etiologies such as otitis, pharyngitis, pneumonia, meningitis, sepsis, bacteremia, as well as others were deemed relatively unlikely. The pt informed about the findings as listed above. All questions were answered and pleased with the treatment. Case reviewed with my attending The chart was completed utilizing [employer] Speech voice recognition software. Grammatical errors, random word insertions, pronoun errors, and incomplete sentences are an occassional consequence of this system due to software l imitations, ambient noise, and hardware issues. Any formal questions or concerns about the content, text, or information contained within the body of this dictation should be directly addressed to the physician assistant produce manager for clarification. Impression & Plan Fever, Elevated troponin Discharge Plan Visit Data Chief Complaint: Dizziness Stated Complaint: BURNING PAIN LEFT SIDE OF BODY, VOMITING, DIZZY ED Provider: Kristin Jesus ED Midlevel Provider: Mari Calvert Discharge Problem: Fever, Elevated troponin Patient Disposition: Admitted As Inpatient Condition: Fair Forms Stand Alone Forms: My [facility] Prescriptions Prescriptions: No Action aspirin [Adult Low Dose Aspirin] 81 mg tablet,delayed release (DR/EC) 81 mg PO DAILY RF: 0 tamsulosin 0.4 mg capsule 0.4 mg PO DAILY RF: 0 hydrochlorothiazide 25 mg tablet 25 mg PO DAILY RF: 0 lisinopril 40 mg tablet 40 mg PO DAILY RF: 0 [id number]-wnyipumjqzjxn-ygoxdytp [Excedrin Extra Strength] 250-250-65 mg tablet 2 tab PO Q6H PRN (Reason: Pain) RF: 0 fluticasone furoate-vilanterol [Breo Ellipta] 100-25 mcg/dose blister with device 1 inha INH DAILY RF: 0 amlodipine 10 mg Tablet 10 mg PO DAILY RF: 0 Referrals Referrals: Clark Meza MD [Primary Care Provider] -
[2018-09-13 02:32] LABS: Basophils # (auto) 0.03 K/uL (0-0.2); Basophils % (auto) 0.2 %; Eosinophils # (auto) 0.02 K/uL (0-0.5); Eosinophils % (auto) 0.1 %; Hematocrit (blood only) 38.5 % (42-52); Hemoglobin 13.2 g/dL (14.0-18.0); Immature Granulocytes # (auto) 0.04 K/uL (0.00-0.02); Immature Granulocytes % (auto) 0.3 %; Lymphocytes # (auto) 0.63 K/uL (1.2-3.4); Mean Corpuscular Hgb Conc 34.3 g/dL (32-36); Mean Corpuscular Volume 82.1 fL (80-100); Mean Platelet Volume 9.5 fL (7.4-10.4); Monocytes # (auto) 0.71 K/uL (0.11-0.59); Monocytes % (auto) 4.5 %; Neutrophils # (auto) 14.44 K/uL (1.4-6.5); Neutrophils % (auto) 90.9 %; Platelet Count 261 K/uL (130-400); RDW Coefficient of Variation 14.3 % (11.5-14.5); Red Blood Count 4.69 M/uL (4.7-6.1); White Blood Count 15.87 K/uL (4.8-10.8)
[2018-09-13 02:39] LABS: Influenza A virus by PCR Neg for Influ A (Neg); Influenza B virus by PCR Neg for Influ B (Neg)
[2018-09-13 02:51] LABS: INR 1.1 (0.9-1.1); Partial Thromboplastin Ratio 0.9; Partial Thromboplastin Time 23.6 Seconds (21.0-31.0); Prothrombin Time 10.8 Seconds (9.0-12.0)
[2018-09-13 02:52] LABS: BUN Creatinine Ratio 14.3 (10-20); Calcium 9.4 mg/dl (8.5-10.1); Creatinine Clr Calc Pharmacy 66.1 ml/min; Est GFR (African American) 63.8; Est GFR (Non-African American) 55.1; Potassium 3.5 mmol/L (3.5-5.1)
[2018-09-13 03:15] LABS: Albumin Globulin Ratio 1.3 (0.9-2); Bilirubin,Total 0.6 mg/dl (0.2-1); Globulin 3.2 gm/dl (2.5-4.0); Total Protein 7.2 gm/dl (6.4-8.2); Troponin I 0.638 ng/ml (0-0.045)
[2018-09-13 03:42] LABS: C Reactive Protein 2.47 mg/dl (0-0.29)
[2018-09-13 03:50] LABS: Lyme Ab IgG w/WB Rflx Negative (Negative); Lyme Ab IgM w/WB Rflx Negative (Negative)
[2018-09-13] MEDS ORDERED: LEVOFLOXACIN/D5W 750 MG/150 ML BAG IV STA (04:26)
--- NOTE | 2018-09-13 04:32 | History & Physical Report ---
Date of Service September 13, 2018 Assessment & Plan (1) Fever: 58-year-old male with history of hypertension, hyperlipidemia presenting with viral GI symptoms. Found to have elevated troponin. Febrile illness Acute onset of symptoms of fevers chills and rigors, but patient's been having GI symptoms for about a day and a half Considering the following differentialviral gastroenteritis, tickborne illnesses, UTI, ascending infection, prostatitis White count of 15.87, neutrophil predominant, lactate of 1.75 Continue hydration Empirically treating with Doxy -Follow tick serologies Elevated troponin in setting of viral symptoms/dehydration Likely secondary to demand ischemia, continue to trend Continue to trend troponin considering significant risk factorshyperlipidemia, hypertension, [id number] smoking history, family history of CAD/diabetes Headache and dizziness CT of the head was obtained in the ED, results pending Hypertension Continue home regimenamlodipine 10 mg, hydrochlorothiazide 25 mg, lisinopril 40 mg Continue aspirin BPH Continue tamsulosin 0.4 mg Patient reports worsening of symptoms, increased retention and foul-smelling urine Asthma Continue home inhaler DVT prophylaxis Lovenox CODE STATUS Full (2) Elevated troponin: (3) Hypertension: (4) High cholesterol: (5) Asthma: (6) Nausea & vomiting: (7) Myalgia: History of Present Illness Primary Care Provider: Clark Meza MD 58-year-old male with a past medical history of hypertension, hyperlipidemia presents to the emergency room after acute onset of body aches, vomiting, fever/chills at approximately 8 PM tonight. He also complained of a burning sensation over both sides of his neck and on the left side of his torso. He states that he threw up 3 times after the onset of the symptoms. He does report having diarrhea last night and into the morning. He endorses a very poor appetite over the past day and a half. In addition, he had dizziness and a hea dache. He has a past medical history of BPH and reports that retention issues have gotten worse recently. He denies having to self catheterize. He reports being outdoors in the [place] with his dog. Cardiovascular risk factors include hyperlipidemia, hypertension, [id number] smoking history. He denies having history of angina or cardiac catheterization. His mother has a history of coronary artery disease and diabetes. HEENT; patient denies sore throat, runny nose Respiratory; denies cough, shortness of breath CV; left-sided torso burning sensation, lasting a duration of approximately 1 hour Allergies Allergy/AdvReac Type Severity Reaction Status Date / Time No Known Allergies Allergy Mild Verified 09/13/18 02:32 Home Medications Home Medications Medication Instructions Recorded Confirmed Type aspirin 81 mg tablet,delayed 81 mg PO DAILY 06/20/18 09/13/18 History release llfddlt-oftdzdgzoxtss-snbbzsom 250 2 tab PO Q6H PRN 06/20/18 09/13/18 History mg-250 mg-65 mg tablet fluticasone furoate 100 1 inha INH DAILY 06/20/18 09/13/18 History mcg-vilanterol 25 mcg/dose inhalation powder hydrochlorothiazide 25 mg tablet 25 mg PO DAILY 06/20/18 09/13/18 History lisinopril 40 mg tablet 40 mg PO DAILY 06/20/18 09/13/18 History tamsulosin 0.4 mg capsule 0.4 mg PO DAILY 06/20/18 09/13/18 History amlodipine 10 mg PO DAILY 09/13/18 09/13/18 History Past Med/Surg History Medical History Asthma (Chronic) Hypertension (Chronic) High cholesterol (Chronic) Surgical History H/O inguinal hernia repair History of appendectomy History of tonsillectomy H/O inguinal hernia repair History of appendectomy History of tonsillectomy Social History Preferred Language: Turkish Communication Ability: Effective Elephant Tamer Required: No Beliefs That Will Affect Care: None Current Living Situation: Significant Other Current Living Situation Comment: primary caregiver for 17 year old grand daughter current occupational status: employed Feels Safe at Home: Yes Safety Concerns: Feels Safe At This Time Smoking Status: Never smoker Tobacco Type: cigarettes Cigarettes Per Day: 1 ppd Hx Alcohol Use: No Hx Substance Use: No Review of Systems Review of Systems: All systems reviewed & are unremarkable except as noted in HPI & below Physical Exam Constitutional: WD/WN, vitals as above Eyes: PERRL, conjunctivae normal, anicteric sclerae ENMT: external ear and nose normal, oropharynx normal Neck: trachea midline, no thyromegaly Respiratory: normal respiratory effort, lungs clear to auscultation Cardiovascular: RRR, no murmur, no edema Gastrointestinal (Abdomen): normal bowel sounds, soft, nontender, no hepatosplenomegaly Musculoskeletal: no cyanosis or clubbing, extremities motor strength 5/5 Skin: no rashes, warm and dry Neurologic: PERRL, EOMI, accommodation nl, no face palsy, no dysarthria Psychiatric: A+Ox3, euthymic affect Results & Data Vital Signs (Past 12 Hours) Vital Signs Temp Pulse Pulse Resp BP BP BP 09/13/18 03:46 60 16 126/81 126/81 09/13/18 02:28 72 16 127/72 09/13/18 02:01 09/13/18 02:00 81 20 09/13/18 01:31 37.7 C H 89 20 126/84 Pulse Ox 09/13/18 03:46 96 09/13/18 02:28 97 09/13/18 02:01 95 09/13/18 02:00 95 09/13/18 01:31 95 Laboratory Results Laboratory Last Values WBC 15.87 K/uL (4.8-10.8) H 09/13/18 02:05 RBC 4.69 M/uL (4.7-6.1) L 09/13/18 02:05 Hgb 13.2 g/dL (14.0-18.0) L 09/13/18 02:05 Hct 38.5 % (42-52) L 09/13/18 02:05 MCV 82.1 fL (80-100) 09/13/18 02:05 MCH 28.1 pg (25-34) 09/13/18 02:05 MCHC 34.3 g/dL (32-36) 09/13/18 02:05 RDW Std Deviation 43.0 fL (36.4-46.3) 09/13/18 02:05 RDW Coeff of Laura 14.3 % (11.5-14.5) 09/13/18 02:05 Plt Count 261 K/uL (130-400) 09/13/18 02:05 MPV 9.5 fL (7.4-10.4) 09/13/18 02:05 Immature Gran % (Auto) 0.3 % 09/13/18 02:05 Neut % (Auto) 90.9 % 09/13/18 02:05 Lymph % (Auto) 4.0 % 09/13/18 02:05 [place] % (Auto) 4.5 % 09/13/18 02:05 Eos % (Auto) 0.1 % 09/13/18 02:05 Baso % (Auto) 0.2 % 09/13/18 02:05 Immature Gran # (Auto) 0.04 K/uL (0.00-0.02) H 09/13/18 02:05 Neut # (Auto) 14.44 K/uL (1.4-6.5) H 09/13/18 02:05 Lymph # (Auto) 0.63 K/uL (1.2-3.4) L 09/13/18 02:05 [place] # (Auto) 0.71 K/uL (0.11-0.59) H 09/13/18 02:05 Eos # (Auto) 0.02 K/uL (0-0.5) 09/13/18 02:05 Baso # (Auto) 0.03 K/uL (0-0.2) 09/13/18 02:05 ESR 9 mm/hr (0-14) 09/13/18 02:05 PT 10.8 Seconds (9.0-12.0) 09/13/18 02:05 INR 1.1 (0.9-1.1) 09/13/18 02:05 APTT 23.6 Seconds (21.0-31.0) 09/13/18 02:05 PTT Ratio 0.9 09/13/18 02:05 Sodium 137 mmol/L (136-145) 09/13/18 02:05 Potassium 3.5 mmol/L (3.5-5.1) 09/13/18 02:05 Chloride 104 mmol/L (98-107) 09/13/18 02:05 Carbon Dioxide 26 mmol/L (21-32) 09/13/18 02:05 Anion Gap 7.0 (3-11) 09/13/18 02:05 BUN 20 mg/dl (7-18) H 09/13/18 02:05 Creatinine 1.39 mg/dl (0.6-1.4) 09/13/18 02:05 Est Cr Clr Drug Dosing 66.1 ml/min 09/13/18 02:05 Est GFR ( Amer) 63.8 09/13/18 02:05 Est GFR (Non-Af Amer) 55.1 09/13/18 02:05 BUN/Creatinine Ratio 14.3 (10-20) 09/13/18 02:05 Glucose 146 mg/dl (70-99) H 09/13/18 02:05 POC Lactic Acid Ren 1.75 mmol/L (0.90-1.70) H 09/13/18 02:25 Calcium 9.4 mg/dl (8.5-10.1) 09/13/18 02:05 Total Bilirubin 0.6 mg/dl (0.2-1) 09/13/18 02:05 AST 24 U/L (15-37) 09/13/18 02:05 ALT 29 U/L (12-78) 09/13/18 02:05 Alkaline Phosphatase 51 U/L (45-117) 09/13/18 02:05 Troponin I 0.638 ng/ml (0-0.045) H* 09/13/18 02:05 C-Reactive Protein 2.47 mg/dl (0-0.29) H 09/13/18 02:05 Total Protein 7.2 gm/dl (6.4-8.2) 09/13/18 02:05 Albumin 4.0 gm/dl (3.4-5.0) 09/13/18 02:05 Globulin 3.2 gm/dl (2.5-4.0) 09/13/18 02:05 Albumin/Globulin Ratio 1.3 (0.9-2) 09/13/18 02:05 Specimen Hemolysis 09/13/18 02:05 Lyme Disease IgG Ab Negative (Negative) 09/13/18 02:05 Lyme Disease IgM Ab Negative (Negative) 09/13/18 02:05 Influenza Type A (PCR) Neg for Influ A (Neg) 09/13/18 01:55 Influenza Type B (PCR) Neg for Influ B (Neg) 09/13/18 01:55 Supervising Physician Co-Signing Physician Notes Patient seen and examined at time of admission, chart reviewed, case discussed with Dr. Monique and I agree with his assessment and plan as documented above. Briefly, patient is a 58yo male with history of HTN, HLP presenting with febrile illness and GI complaints, leukocytosis and mildly elevated troponin. Patient had an episode of burning in his left chest prior to admission. Presently with no CP. On exam he is afebrile, hemodynamically stable Gen: nontoxic in appearance Skin: intact HEENT: NC/AT, PERRL, MMM, neck supple, no JVD Heart: +S1/S2, regular, no m/r/g, no CW tenderness Lungs: CTA, no rales/rhonchi/wheezes Abd: +BS, soft, NT/ND Ext: no edema Labs and images reviewed. Trop = 0.638. EKG with no ischemic changes Assessment/Plan: Patient CP free, no history of CAD or [place] but has risk factors. -Telemetry monitoring -Trend cardiac enzymes -Remainder of plan as above Resident Activity Tracking Resident Involvement: Resident Care Provided Care Provided: Adult Hospital Medicine
[2018-09-13 04:53] LABS: Appearance Urine Clear (Clear); Bilirubin Urine Negative (Negative); Blood Urine Negative (Negative); Color Urine Yellow; Glucose Urine UA Negative (Negative); Ketones Urine Negative (Negative); Leukocyte Esterase Urine Negative (Negative); Nitrite Urine Negative (Negative); Protein Urine Negative (Negative); Specific Gravity Urine 1.018 (1.000-1.030); Urobilinogen Urine Negative (Negative); pH Urine 7.5 (4.5-7.5)
--- NOTE | 2018-09-13 06:28 | XRay Report ---
XR chest 1V portable CLINICAL HISTORY: Sepsis dyspnea COMPARISON STUDY: No previous studies for comparison. FINDINGS: Mild cardiomegaly. Lungs are clear. Diaphragms are smooth. IMPRESSION: Mild cardiomegaly. Otherwise negative study. The above report was generated using voice recognition software. It may contain grammatical, syntax or spelling errors. Electronically signed by: Gerson Jacobsen M.D. 09/13/2018 6:27 AM
--- NOTE | 2018-09-13 06:42 | CT Scan Report ---
CT head/brain wo con CT DOSE: 614.27 mGy.cm HISTORY: Mental status change. Headaches. SCHULTZ TECHNIQUE: Multiaxial CT images of the head were performed without the use of intravenous contrast. A dose lowering technique was utilized adhering to the principles of ALARA. Comparison: None. Findings: The paranasal sinuses and mastoid air cells are clear. The calvarium and skull base are int act. The ventricles and sulci are within normal limits. There is no mass, hematoma, midline shift, or acute infarct. Mild chronic small vessel change Impression: No acute intracranial abnormality. Mild chronic small vessel change. The above report was generated using voice recognition software. It may contain grammatical, syntax or spelling errors. Electronically signed by: Gerson Jacobsen M.D. 09/13/2018 6:40 AM
[2018-09-13] MEDS: SODIUM CHLORIDE 0.9% 1000ML 1,000 ML IV SCH ×2 (06:45→21:11)
[2018-09-13] MEDS: TAMSULOSIN HCL 0.4 MG CAP PO SCH (08:47)
[2018-09-13] MEDS: ASPIRIN 81 MG ECTAB PO SCH (08:47)
[2018-09-13] MEDS: hydroCHLOROthiazide 25 MG TAB PO SCH (08:48)
[2018-09-13] MEDS: ENOXAPARIN INJ 40 MG/0.4 ML SYR SQ SCH (08:48)
[2018-09-13] MEDS: LISINOPRIL 40 MG TAB PO SCH (08:49)
[2018-09-13] MEDS: DOXYCYCLINE HYCLATE 100 MG in DEXTROSE 5% 100 ML IV SCH ×2 (08:49→21:20)
[2018-09-13] MEDS: AMLODIPINE BESYLATE 5 MG TAB PO SCH (08:49)
[2018-09-13] MEDS ORDERED: POTASSIUM CHLORIDE 20 MEQ/15 ML UDC PO STA (09:39)
[2018-09-13] MEDS ORDERED: MAGNESIUM SULFATE / D5W 1 GM/100 ML BAG IV ONE (09:45)
[2018-09-13] MEDS ORDERED: METOPROLOL TARTRATE 25 MG TAB PO SCH ×2 (10:00→21:00)
[2018-09-13] MEDS ORDERED: PERFLUTREN LIPID MICROSPHERE (DEFINITY) IV ONE (11:03)
[2018-09-13] MEDS ORDERED: METOPROLOL TARTRATE 25 MG TAB PO STA (14:32)
[2018-09-13] MEDS ORDERED: ASPIRIN 81 MG CHEW PO STA (14:35)
[2018-09-13] MEDS ORDERED: HEPARIN 25000 UNIT/500 ML D5W IV ONE (14:54)
[2018-09-13] MEDS ORDERED: fentaNYL citrate 100 MCG/2 ML VIAL ONE (15:07)
[2018-09-13] MEDS ORDERED: MIDAZOLAM HCL 1 MG/ML 2ML VIAL ONE (15:07)
[2018-09-13] MEDS ORDERED: HEPARIN (PORCINE) 1000 UNIT/ML 10 ML (CATH LAB USE ONLY) ONE (15:08)
[2018-09-13] MEDS ORDERED: NiCARDipine HCL INJ 2.5 MG/ML 10 ML AMP ONE (15:08)
[2018-09-13] MEDS ORDERED: NITROGLYCERIN/D5W 100MCG/ML 20ML SYR ONE (15:08)
--- NOTE | 2018-09-13 15:13 | Cardiology Consultation ---
Date of Consultation September 13, 2018 Assessment & Plan (1) Non-ST elevation (NSTEMI) myocardial infarction: Recommend medical therapy including intravenous heparin, aspirin 325 mgx 1 now, metoprolol tartrate 12.5 mg twice daily, and high intensity statin therapy. Due to recurrent sustained salvos of ventricular tachycardia and accelerated idioventricular rhythm, recommend cardiac catheterization with coronary angiography and percutaneous intervention if indicated. Risks, benefits, and alternatives to procedure discussed with patient. He is agreeable. (2) NSVT (nonsustained ventricular tachycardia): Beta-gurinder ordered, metoprolol 12.5 mg twice daily. (3) Ischemic cardiomyopathy: (4) Dyslipidemia: Statin therapy added. (5) Fever: Possible viral syndrome. Blood cultures drawn, pending at this time. Antibiotics as per family medicine. History of Present Illness Reason for Consultation: elevated troponin, wide-complex tachycardia Requesting Physician: Dr. Dubon Attending Physician: Pham Dubon MD History of Present Illness 58-year-old patient admitted to the emergency department with an episode of left-sided chest discomfort and possible fevers. Patient reports attempting to move something heavy at work in the evening 09/12/2018. He then developed a left-sided chest burning which traveled up into his neck and down his left leg. The burning was quite significant. There was associated nausea without vomiting. Patient felt lightheaded and dizzy. He returned home and symptoms did not resolve. He then came to the emergency department for further evaluation. Initial ECG within normal limits. Initial troponin mildly elevated with repeat troponin performed at approximately 4 AM of 3.4. I was called with consultation for the patient at approximately 2:30 PM. Patient seen and examined at the bedside. Denying any chest discomfort or burning at this time. Review of telemetry demonstrates frequent sustained runs of wide-complex tachycardia at rates ranging from 90 to 101 bpm. Patient denies any palpitations, lightheadedness, dizziness, syncope, or near syncope. Resting 2D transthoracic echocardiogram performed at bedside and personally reviewed demonstrating an anterior apical and apical lateral wall motion abnormality with preserved LV systolic function and estimated ejection fraction approximately 50%. No significant valvular pathology. Patient previously evaluated by the undersigned in 2017 secondary to dyspnea on exertion and hypertension. Exercise stress echo as well as dobutamine stress echo negative for inducible ischemia at that time. Allergies Allergy/AdvReac Type Severity Reaction Status Date / Time No Known Allergies Allergy Mild Verified 09/13/18 02:32 Home Medications Home Medications Medication Instructions Recorded Confirmed Type aspirin 81 mg tablet,delayed 81 mg PO DAILY 06/20/18 09/13/18 History release wdxikdo-nyfisqputvsgn-iqzpbhhq 250 2 tab PO Q6H PRN 06/20/18 09/13/18 History mg-250 mg-65 mg tablet fluticasone furoate 100 1 inha INH DAILY 06/20/18 09/13/18 History mcg-vilanterol 25 mcg/dose inhalation powder hydrochlorothiazide 25 mg tablet 25 mg PO DAILY 06/20/18 09/13/18 History lisinopril 40 mg tablet 40 mg PO DAILY 06/20/18 09/13/18 History tamsulosin 0.4 mg capsule 0.4 mg PO DAILY 06/20/18 09/13/18 History amlodipine 10 mg PO DAILY 09/13/18 09/13/18 History Patient History Medical History Asthma (Chronic) Hypertension (Chronic) High cholesterol (Chronic) Surgical History H/O inguinal hernia repair History of appendectomy History of tonsillectomy H/O inguinal hernia repair History of appendectomy History of tonsillectomy Social History Preferred Language: Azeri Communication Ability: Effective Tobacco Flavorer Required: No Beliefs That Will Affect Care: None Current Living Situation: Significant Other Current Living Situation Comment: primary caregiver for 17 year old grand daughter current occupational status: employed Feels Safe at Home: Yes Safety Concerns: Feels Safe At This Time Smoking Status: Never smoker Tobacco Type: cigarettes Cigarettes Per Day: 1 ppd Hx Alcohol Use: No Hx Substance Use: No Review of Systems Review of Systems: All systems reviewed & are unremarkable except as noted in HPI & below Physical Exam Physical Exam: General: NAD, AAO x3, well nourished. Overweight. HEENT: Normocephalic. Atraumatic. Conjunctiva pink, no scleral icterus. Neck: No carotid bruits, the carotid upstrokes are brisk. No JVD. No HJR Heart: Regular normal S-1 and S-2 no S-3 or S-4 gallop. No murmurs or rub appreciated. PMI is not displaced. No RV heave. Lungs: Clear bilateral without rales , rhonchi, or wheeze. Abdomen: Normal bowel sounds. Soft. Nontender. No masses or organomegaly. No abdominal bruits. Extremities: No clubbing, cyanosis, or edema. Pulses: radial=2/4, Dorsalis pedis =2/4, posterior tibial=2/4. Neuro: Cranial nerves grossly intact. No focal motor deficit. Results & Data Vital Signs (Past 12 Hours) Vital Signs Temp Pulse Pulse Pulse Resp BP BP 09/13/18 11:51 37.2 C 78 18 09/13/18 07:57 36.9 C 56 L 18 115/61 09/13/18 06:37 36.6 C 63 16 119/76 09/13/18 05:49 36.5 C 65 16 112/68 09/13/18 05:30 59 L 16 127/74 09/13/18 05:00 65 16 112/68 09/13/18 03:46 60 16 126/81 BP Pulse Ox 09/13/18 11:51 96 09/13/18 07:57 96 09/13/18 06:37 96 09/13/18 05:49 98 09/13/18 05:30 96 09/13/18 05:00 98 09/13/18 03:46 126/81 96 Laboratory Results Laboratory Results - last 24 hr 09/13/18 09/13/18 09/13/18 01:55 02:05 02:05 WBC 15.87 H RBC 4.69 L Hgb 13.2 L Hct 38.5 L MCV 82.1 MCH 28.1 MCHC 34.3 RDW Std Deviation 43.0 RDW Coeff of Laura 14.3 Plt Count 261 MPV 9.5 Immature Gran % (Auto) 0.3 Neut % (Auto) 90.9 Lymph % (Auto) 4.0 [place] % (Auto) 4.5 Eos % (Auto) 0.1 Baso % (Auto) 0.2 Immature Gran # (Auto) 0.04 H Neut # (Auto) 14.44 H Lymph # (Auto) 0.63 L [place] # (Auto) 0.71 H Eos # (Auto) 0.02 Baso # (Auto) 0.03 Peripher Smr Path Cons Cancelled ESR PT 10.8 INR 1.1 APTT 23.6 PTT Ratio 0.9 Sodium Potassium Chloride Carbon Dioxide Anion Gap BUN Creatinine Est Cr Clr Drug Dosing Est GFR ( Amer) Est GFR (Non-Af Amer) BUN/Creatinine Ratio Glucose POC Lactic Acid Ren Calcium Magnesium Total Bilirubin AST ALT Alkaline Phosphatase Troponin I C-Reactive Protein Total Protein Albumin Globulin Albumin/Globulin Ratio Specimen Hemolysis Urine Color Urine Appearance Urine pH Ur Specific [place] Urine Protein Urine Glucose (UA) Urine Ketones Urine Blood Urine Nitrite Urine Bilirubin Urine Urobilinogen Ur Leukocyte Esterase Lyme Disease IgG Ab Lyme Disease IgM Ab Hepatitis C Ab Screen Influenza Type A (PCR) Neg for Influ A Influenza Type B (PCR) Neg for Influ B 09/13/18 09/13/18 09/13/18 02:05 02:05 02:05 WBC RBC Hgb Hct MCV MCH MCHC RDW Std Deviation RDW Coeff of Laura Plt Count MPV Immature Gran % (Auto) Neut % (Auto) Lymph % (Auto) [place] % (Auto) Eos % (Auto) Baso % (Auto) Immature Gran # (Auto) Neut # (Auto) Lymph # (Auto) [place] # (Auto) Eos # (Auto) Baso # (Auto) Peripher Smr Path Cons ESR 9 PT INR APTT PTT Ratio Sodium 137 Potassium 3.5 Chloride 104 Carbon Dioxide 26 Anion Gap 7.0 BUN 20 H Creatinine 1.39 Est Cr Clr Drug Dosing 66.1 Est GFR ( Amer) 63.8 Est GFR (Non-Af Amer) 55.1 BUN/Creatinine Ratio 14.3 Glucose 146 H POC Lactic Acid Ren Calcium 9.4 Magnesium Total Bilirubin 0.6 AST 24 ALT 29 Alkaline Phosphatase 51 Troponin I 0.638 H* C-Reactive Protein 2.47 H Total Protein 7.2 Albumin 4.0 Globulin 3.2 Albumin/Globulin Ratio 1.3 Specimen Hemolysis Urine Color Urine Appearance Urine pH Ur Specific [place] Urine Protein Urine Glucose (UA) Urine Ketones Urine Blood Urine Nitrite Urine Bilirubin Urine Urobilinogen Ur Leukocyte Esterase Lyme Disease IgG Ab Negative Lyme Disease IgM Ab Negative Hepatitis C Ab Screen Influenza Type A (PCR) Influenza Type B (PCR) 09/13/18 09/13/18 09/13/18 02:25 04:40 07:47 WBC RBC Hgb Hct MCV MCH MCHC RDW Std Deviation RDW Coeff of Laura Plt Count MPV Immature Gran % (Auto) Neut % (Auto) Lymph % (Auto) [place] % (Auto) Eos % (Auto) Baso % (Auto) Immature Gran # (Auto) Neut # (Auto) Lymph # (Auto) [place] # (Auto) Eos # (Auto) Baso # (Auto) Peripher Smr Path Cons ESR PT INR APTT PTT Ratio Sodium Potassium Chloride Carbon Dioxide Anion Gap BUN Creatinine Est Cr Clr Drug Dosing Est GFR ( Amer) Est GFR (Non-Af Amer) BUN/Creatinine Ratio Glucose POC Lactic Acid Ren 1.75 H Calcium Magnesium Total Bilirubin AST ALT Alkaline Phosphatase Troponin I 3.630 H* C-Reactive Protein Total Protein Albumin Globulin Albumin/Globulin Ratio Specimen Hemolysis Urine Color Yellow Urine Appearance Clear Urine pH 7.5 Ur Specific [place] 1.018 Urine Protein Negative Urine Glucose (UA) Negative Urine Ketones Negative Urine Blood Negative Urine Nitrite Negative Urine Bilirubin Negative Urine Urobilinogen Negative Ur Leukocyte Esterase Negative Lyme Disease IgG Ab Lyme Disease IgM Ab Hepatitis C Ab Screen Influenza Type A (PCR) Influenza Type B (PCR) 09/13/18 09/13/18 07:47 07:53 WBC RBC Hgb Hct MCV MCH MCHC RDW Std Deviation RDW Coeff of Laura Plt Count MPV Immature Gran % (Auto) Neut % (Auto) Lymph % (Auto) [place] % (Auto) Eos % (Auto) Baso % (Auto) Immature Gran # (Auto) Neut # (Auto) Lymph # (Auto) [place] # (Auto) Eos # (Auto) Baso # (Auto) Peripher Smr Path Cons ESR PT INR APTT PTT Ratio Sodium Potassium Chloride Carbon Dioxide Anion Gap BUN Creatinine Est Cr Clr Drug Dosing Est GFR ( Amer) Est GFR (Non-Af Amer) BUN/Creatinine Ratio Glucose POC Lactic Acid Ren Calcium Magnesium 2.0 Total Bilirubin AST ALT Alkaline Phosphatase Troponin I C-Reactive Protein Total Protein Albumin Globulin Albumin/Globulin Ratio Specimen Hemolysis Urine Color Urine Appearance Urine pH Ur Specific [place] Urine Protein Urine Glucose (UA) Urine Ketones Urine Blood Urine Nitrite Urine Bilirubin Urine Urobilinogen Ur Leukocyte Esterase Lyme Disease IgG Ab Lyme Disease IgM Ab Hepatitis C Ab Screen Neg Influenza Type A (PCR) Influenza Type B (PCR) Diagnostic Findings Telemetry reveals sinus rhythm with frequent prolonged salvos of nonsustained ventricular tachycardia/accelerated idioventricular rhythm at rates ranging from 90 to 100 bpm.
--- NOTE | 2018-09-13 15:28 | Pre Anesthesia Assessment ---
Date of Service September 13, 2018 Pre Sedation Assessment Vital Signs Temp Pulse Pulse Pulse Resp BP BP 09/13/18 15:08 37.6 C H 73 18 136/82 09/13/18 11:51 37.2 C 78 18 09/13/18 07:57 36.9 C 56 L 18 115/61 09/13/18 06:37 36.6 C 63 16 119/76 09/13/18 05:49 36.5 C 65 16 112/68 09/13/18 05:30 59 L 16 127/74 09/13/18 05:00 65 16 112/68 09/13/18 03:46 60 16 126/81 09/13/18 02:28 72 16 09/13/18 02:01 09/13/18 02:00 81 20 09/13/18 01:31 37.7 C H 89 20 126/84 BP Pulse Ox 09/13/18 15:08 95 09/13/18 11:51 96 09/13/18 07:57 96 09/13/18 06:37 96 09/13/18 05:49 98 09/13/18 05:30 96 09/13/18 05:00 98 09/13/18 03:46 126/81 96 09/13/18 02:28 127/72 97 09/13/18 02:01 95 09/13/18 02:00 95 09/13/18 01:31 95 Cardiovascular RRR, no murmur, no edema Respiratory normal respiratory effort, lungs clear to auscultation Pre-Sedation Airway Assessment Smoking Status: Never smoker Hx Sleep Apnea: No Hx Difficult Intubation: No Short, Thick Neck: No Thyromental Distance: > or= 3.5 Finger Breadths Oral Cavity: + WNL Mallampati Class: III Procedure Planning Contraindications for Sedation: none Current Medications Reviewed: Yes Notes The planned sedation has been discussed with the patient. Informed Consent was obtained. I have identified the patient, determined the appropriateness of sedation and have assessed the patient immediately prior to the procedure. All medicine(s) and interventions are by my order.
--- NOTE | 2018-09-13 15:29 | Cardiac Catheterization ---
Cardiac Cath Procedure Full Procedure Date September 13, 2018 Pre-Procedure Diagnosis Pre-Procedure Diagnosis: Non STEMI AUC Score AUC Score: 8 Post-Procedure Diagnosis Post-Procedure Diagnosis: Mild CAD, Normal LV Systolic Function and Normal Intracardiac Pressures Procedure(s) Performed Procedure(s) Performed: Coronary Angiography, Left Heart Cath and LV Angiography [employer] Professional Alden Sims MD Hydraulic Press Operator(s) Reynaldo Estimated Blood Loss Estimated Blood Loss: <15 Medication(s) Medication(s): Fentanyl, Heparin, Lidocaine 1%, Nicardipine, Nitroglycerin and Versed Summary of Findings Indication: Suspected ACS, wide-complex tachycardia Access: 6 Fr slender right radial artery Catheters: [place], JL 3.5, pigtail Findings: LM -Short, no significant disease LAD -moderate caliber vessel, tortuous, luminal irregularities, wraps around apex. First diagonal moderate caliber with 20% ostial stenosis. Moderate caliber second diagonal with 30 to 40% ostial stenosis Circumflex -large caliber vessel, proximal luminal irregularities, gives off large OM 2 without sniffing disease. RCA -dominant, large caliber vessel, mid and distal luminal irregularities, 20 to 30% ostial right PDA LVEDP - 7 LVEF - 50-55% Arterial Closure: TR band Summary: 1. Mild nonobstructive coronary artery disease 30% ostial second diagonal, 20 to 30% ostial right PDA 2. Normal intracardiac filling pressure 3. Normal LV function. LVEF 50-55% Recommendations: Continued ASCVD risk factor modification Continued management of viral myocarditis versus stress-induced cardiomyopathy and wide-complex rhythm per Dr. Cameron. Hemodynamics Rest Ao:: 98/66/82 Final Ao: 107/59/78 LV: 101/7 Recommendations Recommendations: None Specimens Specimens: None Radiation Exposure (mGy) 1719 Contrast (mls) 90 Visi Fluids (cc crystalloids) Fluids (cc crystalloids): 50 Drains Drains: none Anesthesia moderate Procedural Complication(s) None Disposition PCU ACC Data: Strawhat Blocking Operator Cardiac Status Clinical evaluation leading to the procedure CAD Presenation: Non STEMI Anginal Classification: CCS IV Heart Failure: No Cardiogenic Shock within 24 Hours: No Cardiac Arrest within 24 Hours: No Imaging Studies Past 6 Months: Yes Stress Studies Past 6 Months: No Diagnostic Physicians Name: Alden Sims MD Status: Urgent Closure Device Percutaneous Entry Location: Radial Closure Device: Radial Band Recommendations: None Intraprocedure Events Significant Disection: No Perforation: No
--- NOTE | 2018-09-13 15:56 | Post Anesthesia Assessment ---
Date of Service September 13, 2018 Post Sedation Assessment Vital Signs Temp Pulse Pulse Pulse Resp BP BP 09/13/18 15:08 37.6 C H 73 18 136/82 09/13/18 11:51 37.2 C 78 18 09/13/18 07:57 36.9 C 56 L 18 115/61 09/13/18 06:37 36.6 C 63 16 119/76 09/13/18 05:49 36.5 C 65 16 112/68 09/13/18 05:30 59 L 16 127/74 09/13/18 05:00 65 16 112/68 09/13/18 03:46 60 16 126/81 09/13/18 02:28 72 16 09/13/18 02:01 09/13/18 02:00 81 20 09/13/18 01:31 37.7 C H 89 20 126/84 BP Pulse Ox 09/13/18 15:08 95 09/13/18 11:51 96 09/13/18 07:57 96 09/13/18 06:37 96 09/13/18 05:49 98 09/13/18 05:30 96 09/13/18 05:00 98 09/13/18 03:46 126/81 96 09/13/18 02:28 127/72 97 09/13/18 02:01 95 09/13/18 02:00 95 09/13/18 01:31 95 Recovery Score Activity: Moves 4 extremities Respiration: Deep Breath/Cough Circulation: +/-20% PreAnes Value Consciousness: Fully Awake Oxygen Saturation: O2 needed for >90% Discharge Sedation Level of Care: Fast Track Phase II Post Sedation Plan On clinical assessment, the patient appears to have tolerated the sedation without complications. Patient is recovering as anticipated. Patient will continue to be monitored by nursing and may be discharged when sedation discharge criteria are met per below protocol. Upon Completions of procedure and additional 15 minutes continue every 5 minute vital signs and the P.A.R. score; then discharge to a Phase I or Fast Track to Phase II per the following guidelines: * Discharge Patient to appropriate Phase II area if PAR is 8 or greater or return to pre- procedure baseline. The post - procedure orders will be as directed. * If PAR score is less than 8 or not return to pre-procedure baseline then patient will follow Phase I monitoring till PAR is reached for Phase II. The Phase I may be done in procedure room or may call to secure a Phase I area. * If naloxone or flumazenil are used for reversal, hold in Phase I for continued monitoring from when last reversal dose was given for a minimum of 60 minutes or longer pending the nurse and/or physician discretion of patient condition before discharge to Phase II. Please call the Sedation Physician to re-evaluate and complete post-note for discharge to Phase II area. Do NOT discharge from procedure sedation or Phase 1 until post- sedation evaluation note is complete by procedure /sedation MD Sedation Discharge Instructions to be given to the patient at discharge to home.
--- NOTE | 2018-09-13 16:08 | Family Medicine Progress Note ---
Date of Service September 13, 2018 Assessment & Plan (1) Fever: 58-year-old male with history of hypertension, hyperlipidemia presenting with viral GI symptoms. Found to have elevated troponin and runs of wide complex tachycardia. NSTEMI -pt with significant risk factorshyperlipidemia, hypertension, [id number] smoking history, family history of CAD/diabetes -Trops: 0.638, 3.63, 7.57 -Ordered echo, Resting 2D transthoracic echocardiogram demonstrated an anterior apical and apical lateral wall motion abnormality with preserved LV systolic function and estimated EF ~50%. No significant valvular pathology -Cards: IV heparin, 1x aspirin 325 mg, metoprolol tartrate 12.5 mg BID, and high intensity statin therapy -09/13 Cath: Mild nonobstructive coronary artery disease, normal intracardiac filling pressure, normal LV function 50-55% -Unclear of the etiology of NSTEMI WCT -pt had frequent sustained runs of wide-complex tachycardia ranging from 90 to 100s, but remained asymptomatic (denies any palpitations, lightheadedness, dizziness, syncope, or near syncope). -Stat Echo ordered - report as above. -EKG unchanged -given Mg/K -Added metoprolol -LHC with no occlusive ds. Febrile illness Acute onset of symptoms of fevers chills and rigors, but pt was having GI symptoms for about a day and a half -Has remained afebrile thus far DDx: viral gastroenteritis, tickborne illnesses (pt in [place] frequently), UTI, ascending infection, prostatitis White count of 15.87, neutrophil predominant, lactate of 1.75 -Lyme antibodies neg. Ehrlichia/Anaplasmosis pending. -Ordered Peripheral smear looking for inclusion bodies pending Empirically treated w/ Levaquin in ED. Will cont on doxy until serologies return Hypertension Continue home regimenamlodipine 10 mg, hydrochlorothiazide 25 mg, lisinopril 40 mg Mild Nonobstructive CAD Continue BB, atorvastatin 80 mg, ASA 81 BPH Continue tamsulosin 0.4 mg Patient reports worsening of symptoms, increased retention and foul-smelling urine. Will cont to monitor Asthma Continue home inhaler Headache and dizziness CT Head- normal -seems to be improved FEN/GI: Heart Healthy DVT prophylaxis: Lovenox Dispo: PCU Tele Full Code Supervising Physician Co-Signing Physician Notes Resident Physician Supervision Note: I independently interviewed and examined the patient and verified the alejandra history and physical, reviewed labs and image studies, discussed the case with the resident Dr. Ward and agree with the findings and care plan. Was called by nurse with patient's elevated troponin. Visiting with patient - noted multiple runs of wct. Patient asymptomatic. Denies any chest pain, dizziness, shortness of breath. Ordered stat replacement of electrolytes, stat echo, repeat EKG, added metoprolol, Cardiology consulted - spoke to Dr. Cameron. Patient taken to [facility] Spent 40 min of critical care time. Subjective 58 y/o M found in bed this AM in NAD. Reports no acute overnight events other th an difficulty sleeping which is not new for him. Denies any CP, SOB, palpitations, lightheadedness, dizzyness, syncope, or burning sensation. Reports from tele of few sustained runs of WCT. Pt still remained asymptomatic throughout. No other acute concerns or complaints. Review of Systems Review of Systems: All systems reviewed & are unremarkable except as noted in HPI & below Physical Exam Constitutional: WD/WN, vitals as above Eyes: PERRL, conjunctivae normal, anicteric sclerae ENMT: external ear and nose normal, oropharynx normal Respiratory: normal respiratory effort, lungs clear to auscultation Cardiovascular: RRR, no murmur, no edema Gastrointestinal (Abdomen): normal bowel sounds, soft, nontender, no hepatosplenomegaly Skin: no rashes, warm and dry Psychiatric: A+Ox3, euthymic affect Results & Data Vital Signs (Past 12 Hours) Vital Signs Temp Pulse Pulse Pulse Resp BP BP 09/13/18 15:08 37.6 C H 73 18 136/82 09/13/18 11:51 37.2 C 78 18 09/13/18 07:57 36.9 C 56 L 18 115/61 09/13/18 06:37 36.6 C 63 16 119/76 09/13/18 05:49 36.5 C 65 16 112/68 09/13/18 05:30 59 L 16 127/74 09/13/18 05:00 65 16 112/68 Pulse Ox 09/13/18 15:08 95 09/13/18 11:51 96 09/13/18 07:57 96 09/13/18 06:37 96 09/13/18 05:49 98 09/13/18 05:30 96 09/13/18 05:00 98 Resident Activity Tracking Resident Involvement: Resident Care Provided Care Provided: Adult Hospital Medicine
[2018-09-13] MEDS ORDERED: SODIUM CHLORIDE 0.9% 1000ML 1,000 ML IV SCH (16:15)
[2018-09-13] MEDS: ATORVASTATIN 40 MG TAB PO SCH (17:58)
[2018-09-13] MEDS: METOPROLOL TARTRATE 25 MG TAB PO SCH (21:20)
[2018-09-14] MEDS: METOPROLOL TARTRATE 25 MG TAB PO SCH ×2 (05:25→20:35)
[2018-09-14 05:45] LABS: Basophils # (auto) 0.01 K/uL (0-0.2); Basophils % (auto) 0.1 %; Eosinophils # (auto) 0.02 K/uL (0-0.5); Eosinophils % (auto) 0.2 %; Hematocrit (blood only) 38.2 % (42-52); Immature Granulocytes # (auto) 0.03 K/uL (0.00-0.02); Immature Granulocytes % (auto) 0.4 %; Lymphocytes # (auto) 0.84 K/uL (1.2-3.4); Lymphocytes % (auto) 10.4 %; Mean Corpuscular Volume 81.8 fL (80-100); Mean Platelet Volume 9.4 fL (7.4-10.4); Monocytes # (auto) 0.69 K/uL (0.11-0.59); Monocytes % (auto) 8.6 %; Neutrophils # (auto) 6.46 K/uL (1.4-6.5); Neutrophils % (auto) 80.3 %; Platelet Count 206 K/uL (130-400); RDW Coefficient of Variation 14.4 % (11.5-14.5); Red Blood Count 4.67 M/uL (4.7-6.1); White Blood Count 8.05 K/uL (4.8-10.8)
[2018-09-14 06:06] LABS: Albumin Level 3.5 gm/dl (3.4-5.0); BUN Creatinine Ratio 12.8 (10-20); Creatinine Clr Calc Pharmacy 73.2 ml/min; Est GFR (African American) 72.6; Est GFR (Non-African American) 62.6; Potassium 3.5 mmol/L (3.5-5.1)
[2018-09-14 06:10] LABS: Albumin Globulin Ratio 1.1 (0.9-2); Bilirubin,Total 0.7 mg/dl (0.2-1); Globulin 3.2 gm/dl (2.5-4.0); Total Protein 6.7 gm/dl (6.4-8.2)
[2018-09-14] MEDS: hydroCHLOROthiazide 25 MG TAB PO SCH (08:21)
[2018-09-14] MEDS: AMLODIPINE BESYLATE 5 MG TAB PO SCH (08:21)
[2018-09-14] MEDS: ASPIRIN 81 MG ECTAB PO SCH (08:21)
[2018-09-14] MEDS: ENOXAPARIN INJ 40 MG/0.4 ML SYR SQ SCH (08:22)
[2018-09-14] MEDS: TAMSULOSIN HCL 0.4 MG CAP PO SCH (08:22)
[2018-09-14] MEDS: LISINOPRIL 40 MG TAB PO SCH (08:22)
[2018-09-14] MEDS: ATORVASTATIN 40 MG TAB PO SCH (08:22)
[2018-09-14] MEDS: DOXYCYCLINE HYCLATE 100 MG in DEXTROSE 5% 100 ML IV SCH (08:25)
--- NOTE | 2018-09-14 09:42 | Cardiology Progress Note ---
Date of Service September 14, 2018 Assessment & Plan (1) Non-ST elevation (NSTEMI) myocardial infarction: Urgent cardiac catheterization revealing nonobstructive CAD. Apical anterior lateral wall motion abnormality possibly stress-induced versus plaque rupture with spontaneous recannulation versus focal myocarditis (less likely). Continue current medical therapy with aspirin, statin, MARYAM inhibitor, and beta- gurinder therapy. Repeat resting 2D transthoracic echocardiogram in 2 to 4 weeks pending clinical course. Transition metoprolol to 25 mg twice daily. (2) NSVT (nonsustained ventricular tachycardia): Resolved. Titrate metoprolol to 25 mg twice daily. (3) Ischemic cardiomyopathy: (4) Dyslipidemia: Statin therapy added. (5) Fever: Suspect viral gastroenteritis with associated diarrhea. Cultures pending. Subjective Recurrent fever noted overnight. Patient seen and examined at the bedside. Reports 3 episodes of diarrhea overnight. No recurrent chest discomfort or unusual shortness of breath. Telemetry reveals sinus rhythm with occasional PVCs. Previous runs of wide-complex tachycardia have resolved. Patient receiving IV antibiotic treatment per general medicine service. IV heparin discontinued. Cardiac catheterization revealing nonobstructive CAD. Review of Systems Review of Systems: All systems reviewed & are unremarkable except as noted in HPI & below Physical Exam Physical Exam: General: NAD, AAO x3, well nourished. HEENT: Normocephalic. Atraumatic. Conjunctiva pink, no scleral icterus. Neck: No carotid bruits, the carotid upstrokes are brisk. No JVD. No HJR Heart: Regular normal S-1 and S-2 no S-3 or S-4 gallop. No murmurs or rub appreciated. PMI is not displaced. No RV heave. Lungs: Clear bilateral without rales , rhonchi, or wheeze. Abdomen: Normal bowel sounds. Soft. Nontender. No masses or organomegaly. No abdominal bruits. Extremities: No clubbing, cyanosis, or edema. Pulses: radial=2/4, Dorsalis pedis =2/4, posterior tibial=2/4. Neuro: Cranial nerves grossly intact. No focal motor deficit. Results & Data Vital Signs (Past 12 Hours) Vital Signs Temp Pulse Pulse Pulse Resp BP Pulse Ox 09/14/18 08:00 36.5 C 81 81 18 122/73 96 09/14/18 04:12 36.8 C 62 16 114/74 97 09/14/18 00:00 70 09/13/18 23:42 38.3 C H 68 18 124/80 95 09/13/18 22:00 16 121/76 99 Laboratory Results Laboratory Results - last 24 hr 09/13/18 09/13/18 09/13/18 02:05 07:53 14:36 WBC RBC Hgb Hct MCV MCH MCHC RDW Std Deviation RDW Coeff of Laura Plt Count MPV Immature Gran % (Auto) Neut % (Auto) Lymph % (Auto) Hood % (Auto) Eos % (Auto) Baso % (Auto) Immature Gran # (Auto) Neut # (Auto) Lymph # (Auto) Hood # (Auto) Eos # (Auto) Baso # (Auto) Peripher Smr Path Cons Cancelled Sodium Potassium Chloride Carbon Dioxide Anion Gap BUN Creatinine Est Cr Clr Drug Dosing Est GFR ( Amer) Est GFR (Non-Af Amer) BUN/Creatinine Ratio Glucose Calcium Magnesium 2.0 Total Bilirubin AST ALT Alkaline Phosphatase Troponin I 7.570 H* Total Protein Albumin Globulin Albumin/Globulin Ratio 09/14/18 09/14/18 05:23 05:23 WBC 8.05 RBC 4.67 L Hgb 13.0 L Hct 38.2 L MCV 81.8 MCH 27.8 MCHC 34.0 RDW Std Deviation 43.0 RDW Coeff of Laura 14.4 Plt Count 206 MPV 9.4 Immature Gran % (Auto) 0.4 Neut % (Auto) 80.3 Lymph % (Auto) 10.4 Hood % (Auto) 8.6 Eos % (Auto) 0.2 Baso % (Auto) 0.1 Immature Gran # (Auto) 0.03 H Neut # (Auto) 6.46 Lymph # (Auto) 0.84 L Hood # (Auto) 0.69 H Eos # (Auto) 0.02 Baso # (Auto) 0.01 Peripher Smr Path Cons Sodium 137 Potassium 3.5 Chloride 104 Carbon Dioxide 23 Anion Gap 10.0 BUN 16 Creatinine 1.25 Est Cr Clr Drug Dosing 73.2 Est GFR ( Amer) 72.6 Est GFR (Non-Af Amer) 62.6 BUN/Creatinine Ratio 12.8 Glucose 108 H Calcium 9.0 Magnesium Total Bilirubin 0.7 AST 47 H ALT 31 Alkaline Phosphatase 48 Troponin I Total Protein 6.7 Albumin 3.5 Globulin 3.2 Albumin/Globulin Ratio 1.1
[2018-09-14] MEDS ORDERED: POTASSIUM CHLORIDE / WTR 10 MEQ/100 ML PLCT IV ONE (10:00)
--- NOTE | 2018-09-14 10:49 | Family Medicine Progress Note ---
Date of Service September 14, 2018 Assessment & Plan (1) Fever: 58-year-old male with history of hypertension, hyperlipidemia presenting with viral GI symptoms. Found to have elevated troponin and runs of wide complex tachycardia. NSTEMI -Trops: 0.638, 3.63, 7.57 -previous visit in 2017 for SILVA/HTN. Exercise stress echo and dobutamine stress echo were negative for inducible ischemia -09/13 pt had frequent sustained runs of wide-complex tachycardia ranging from 90 to 100s, but remained asymptomatic (denies any palpitations, lightheadedness, dizziness, syncope, or near syncope) - Resting 2D transthoracic echocardiogram demonstrated an anterior apical and apical lateral wall motion abnormality with preserved LV systolic function and estimated EF ~50%. No significant valvular pathology -Plan for repeat resting 2D transthoracic echocardiogram in 2 to 4 weeks -09/13 Urgent Cath: Mild nonobstructive CAD, normal intracardiac filling pressure, normal LV function 50-55% -Will cont w/ ASA 81, Atorvastatin 80mg, Lisinopril 40mg, and metoprolol 25mg BID (titrated today) Febrile illness Acute onset of symptoms of fevers chills and rigors, but pt was having GI symptoms for about a day and a half prior to admit -Low grade fever that self resolved overnight, otherwise has been afebrile DDx: viral gastroenteritis (likely), tickborne illnesses (pt in [facility] frequently), UTI/ascending infection/prostatitis (unlikely) Empirically treated w/ Levaquin in ED. D/C doxy today despite not having full tick serologies back given low likelihood of returning positive and in light of increased diarrhea -Lyme antibodies neg. Ehrlichia/Anaplasmosis pending. Peripheral smear looking for inclusion bodies pending (Path not here on weekends, will be done tomorrow) -given low normal K 3.5 and multiple diarrheal episodes and h/o WCT here, supplemented with IV Potassium 10meq today Hypertension Continue home regimenamlodipine 10 mg, hydrochlorothiazide 25 mg, lisinopril 40 mg Mild Nonobstructive CAD As above, will cont ASA, statin, ACEi, and BB therapy BPH Continue tamsulosin 0.4 mg Patient reports resolution of symptoms of increased retention and foul-smelling urine. Will cont to monitor Asthma Continue home inhaler Headache and dizziness CT Head- normal -seems to be improving FEN/GI: Heart Healthy DVT prophylaxis: Lovenox Dispo: PCU Tele Full Code Supervising Physician Co-Signing Physician Notes Resident Physician Supervision Note: I independently interviewed and examined the patient and verified the alejandra history and physical, reviewed labs and image studies, discussed the case with the resident Dr. Quintanilla and agree with the findings and care plan. Subjective 58 y/o M found in bed this AM. Reports of low grade fever 38.3C overnight that b roke on its own. Pt has had 4 episodes of diarrhea this AM at time of examination, nonbloody. Tele overnight sinus rhythm with occasional PVCs with no runs of wide complex tachycardia. Pt denies CP, SOB, syncope. Tolerating PO intake. No other acute concerns or complaints. Review of Systems Review of Systems: All systems reviewed & are unremarkable except as noted in HPI & below Physical Exam Constitutional: WD/WN, vitals as above Eyes: PERRL, conjunctivae normal, anicteric sclerae ENMT: external ear and nose normal, oropharynx normal Respiratory: normal respiratory effort, lungs clear to auscultation Cardiovascular: RRR, no murmur, no edema Gastrointestinal (Abdomen): normal bowel sounds, soft, nontender, no hepatosplenomegaly Skin: no rashes, warm and dry Psychiatric: A+Ox3, euthymic affect Results & Data Vital Signs (Past 12 Hours) Vital Signs Temp Pulse Pulse Pulse Resp BP Pulse Ox 09/14/18 08:00 36.5 C 81 81 18 122/73 96 09/14/18 04:12 36.8 C 62 16 114/74 97 09/14/18 00:00 70 09/13/18 23:42 38.3 C H 68 18 124/80 95 Laboratory Results Laboratory Results - last 24 hr 09/13/18 09/13/18 09/14/18 02:05 14:36 05:23 WBC 8.05 RBC 4.67 L Hgb 13.0 L Hct 38.2 L MCV 81.8 MCH 27.8 MCHC 34.0 RDW Std Deviation 43.0 RDW Coeff of Laura 14.4 Plt Count 206 MPV 9.4 Immature Gran % (Auto) 0.4 Neut % (Auto) 80.3 Lymph % (Auto) 10.4 [place] % (Auto) 8.6 Eos % (Auto) 0.2 Baso % (Auto) 0.1 Immature Gran # (Auto) 0.03 H Neut # (Auto) 6.46 Lymph # (Auto) 0.84 L [place] # (Auto) 0.69 H Eos # (Auto) 0.02 Baso # (Auto) 0.01 Peripher Smr Path Cons Cancelled Sodium Potassium Chloride Carbon Dioxide Anion Gap BUN Creatinine Est Cr Clr Drug Dosing Est GFR ( Amer) Est GFR (Non-Af Amer) BUN/Creatinine Ratio Glucose Calcium Total Bilirubin AST ALT Alkaline Phosphatase Troponin I 7.570 H* Total Protein Albumin Globulin Albumin/Globulin Ratio 09/14/18 05:23 WBC RBC Hgb Hct MCV MCH MCHC RDW Std Deviation RDW Coeff of Laura Plt Count MPV Immature Gran % (Auto) Neut % (Auto) Lymph % (Auto) [place] % (Auto) Eos % (Auto) Baso % (Auto) Immature Gran # (Auto) Neut # (Auto) Lymph # (Auto) [place] # (Auto) Eos # (Auto) Baso # (Auto) Peripher Smr Path Cons Sodium 137 Potassium 3.5 Chloride 104 Carbon Dioxide 23 Anion Gap 10.0 BUN 16 Creatinine 1.25 Est Cr Clr Drug Dosing 73.2 Est GFR ( Amer) 72.6 Est GFR (Non-Af Amer) 62.6 BUN/Creatinine Ratio 12.8 Glucose 108 H Calcium 9.0 Total Bilirubin 0.7 AST 47 H ALT 31 Alkaline Phosphatase 48 Troponin I Total Protein 6.7 Albumin 3.5 Globulin 3.2 Albumin/Globulin Ratio 1.1 Medications Administered Current Inpatient Medications Acetaminophen (Tylenol) 650 mg PO Q4H PRN PRN Reason: Pain or Fever Stop: 10/13/18 06:20 Amlodipine Besylate (Norvasc) 10 mg PO DAILY [facility] Stop: 10/13/18 08:59 Last Admin: 09/14/18 08:21 Dose: 10 mg Documented by: Aspirin (Ecotrin Ectab) 81 mg PO DAILY [facility] Stop: 10/13/18 08:59 Last Admin: 09/14/18 08:21 Dose: 81 mg Documented by: Atorvastatin Calcium (Lipitor) 80 mg PO QAM [facility] Stop: 10/13/18 15:14 Last Admin: 09/14/18 08:22 Dose: 80 mg Documented by: Enoxaparin Sodium (Lovenox) 40 mg SQ QAM [facility] Stop: 10/13/18 08:59 Last Admin: 09/14/18 08:22 Dose: 40 mg Documented by: Hydrochlorothiazide (Hctz) 25 mg PO DAILY [facility] Stop: 10/13/18 08:59 Last Admin: 09/14/18 08:21 Dose: 25 mg Documented by: Sodium Chloride (Nss 1000ml) 1,000 mls @ 80 mls/hr IV .[id number] [facility] Stop: 10/13/18 06:20 Last Admin: 09/13/18 21:11 Dose: Not Given Documented by: Doxycycline Hyclate 100 mg/ (Dextrose) 110 mls @ 50 mls/hr IV BID [facility] Stop: 09/15/18 08:59 Last Infusion: 09/14/18 09:54 Dose: Infused Documented by: Potassium Chloride (K Devin / Wtr) 10 meq in 100 mls @ 100 mls/hr IV ONE ONE Stop: 09/14/18 10:59 Last Admin: 09/14/18 10:33 Dose: 75 mls/hr Documented by: Lisinopril (Zestril) 40 mg PO DAILY [facility] Stop: 10/13/18 08:59 Last Admin: 09/14/18 08:22 Dose: 40 mg Documented by: Metoprolol Tartrate (Lopressor) 25 mg PO BID [facility] Stop: 10/14/18 20:59 Metoprolol Tartrate (Lopressor) 12.5 mg PO ONE ONE Stop: 09/15/18 10:01 Miscellaneous (Order Awaiting Action) 1 ea N/A QS [facility] Stop: 10/13/18 07:59 Last Admin: 09/14/18 07:24 Dose: Not Given Documented by: Miscellaneous (Order Awaiting Action) 1 ea N/A QS [facility] Stop: 10/13/18 07:59 Last Admin: 09/14/18 07:23 Dose: Not Given Documented by: Tamsulosin HCl (Flomax) 0.4 mg PO DAILY [facility] Stop: 10/13/18 08:59 Last Admin: 09/14/18 08:22 Dose: 0.4 mg Documented by: Resident Activity Tracking Resident Involvement: Resident Care Provided Care Provided: Adult Hospital Medicine
[2018-09-14] MEDS: ACETAMINOPHEN 325 MG TAB PO PRN (20:35)
--- NOTE | 2018-09-15 02:57 | Progress Note ---
Date of Service September 15, 2018 Received page from patient's nurse that 1 of the 2 blood cultures from September 13 was positive for gram-negative bacilli (preliminary). Brief record review notes patient was admitted for febrile illness. Ended up having an NSTEMI and cardiac cath. Vitals reviewed, including no fevers since the . Plan: - Will start ceftriaxone 2 g IV every 24 hours. - Resent blood cultures. Isaac Bateman, PGY2 Overnight call Results & Data Vital Signs (Past 12 Hours) Vital Signs Temp Pulse Pulse Resp BP Pulse Ox 09/14/18 23:59 56 L 09/14/18 23:54 36.8 C 59 L 17 103/71 97 09/14/18 19:16 37.2 C 71 18 135/78 97 09/14/18 15:25 36.8 C 71 18 131/81 97
[2018-09-15] MEDS: ACETAMINOPHEN 325 MG TAB PO PRN ×2 (04:27→17:00)
[2018-09-15 06:12] LABS: Basophils # (auto) 0.01 K/uL (0-0.2); Basophils % (auto) 0.2 %; Eosinophils # (auto) 0.07 K/uL (0-0.5); Eosinophils % (auto) 1.1 %; Hematocrit (blood only) 40.5 % (42-52); Hemoglobin 13.7 g/dL (14.0-18.0); Immature Granulocytes # (auto) 0.03 K/uL (0.00-0.02); Immature Granulocytes % (auto) 0.5 %; Lymphocytes # (auto) 0.78 K/uL (1.2-3.4); Lymphocytes % (auto) 12.5 %; Mean Corpuscular Hgb Conc 33.8 g/dL (32-36); Mean Corpuscular Volume 82.2 fL (80-100); Mean Platelet Volume 9.7 fL (7.4-10.4); Monocytes % (auto) 11.3 %; Neutrophils # (auto) 4.63 K/uL (1.4-6.5); Neutrophils % (auto) 74.4 %; Platelet Count 212 K/uL (130-400); RDW Coefficient of Variation 14.1 % (11.5-14.5); RDW Standard Deviation 42.3 fL (36.4-46.3); Red Blood Count 4.93 M/uL (4.7-6.1); White Blood Count 6.22 K/uL (4.8-10.8)
[2018-09-15 06:45] LABS: Albumin Level 3.7 gm/dl (3.4-5.0); Calcium 9.4 mg/dl (8.5-10.1); Creatinine Clr Calc Pharmacy 67.5 ml/min; Est GFR (African American) 66.1; Est GFR (Non-African American) 57.1; Potassium 3.2 mmol/L (3.5-5.1)
[2018-09-15 06:47] LABS: Bilirubin,Total 0.7 mg/dl (0.2-1); Globulin 3.6 gm/dl (2.5-4.0); Total Protein 7.3 gm/dl (6.4-8.2)
[2018-09-15] MEDS: METOPROLOL TARTRATE 25 MG TAB PO ONE ×2 (09:32→10:16)
[2018-09-15] MEDS: cefTRIAXone SODIUM 2,000 MG in DEXTROSE 5% 50 ML IV SCH (09:33)
[2018-09-15] MEDS: LISINOPRIL 40 MG TAB PO SCH (09:33)
[2018-09-15] MEDS: AMLODIPINE BESYLATE 5 MG TAB PO SCH (09:33)
[2018-09-15] MEDS: ATORVASTATIN 40 MG TAB PO SCH (09:33)
[2018-09-15] MEDS: TAMSULOSIN HCL 0.4 MG CAP PO SCH (09:34)
[2018-09-15] MEDS: ENOXAPARIN INJ 40 MG/0.4 ML SYR SQ SCH (09:34)
[2018-09-15] MEDS: ASPIRIN 81 MG ECTAB PO SCH (09:34)
[2018-09-15] MEDS: hydroCHLOROthiazide 25 MG TAB PO SCH (09:34)
[2018-09-15] MEDS: METOPROLOL TARTRATE 25 MG TAB PO SCH ×2 (09:47→20:28)
[2018-09-15] MEDS ORDERED: POTASSIUM CHLORIDE 20 MEQ TABCR PO STA (09:48)
--- NOTE | 2018-09-15 10:21 | Cardiology Progress Note ---
Date of Service September 15, 2018 Assessment & Plan (1) Non-ST elevation (NSTEMI) myocardial infarction: Urgent cardiac catheterization revealing nonobstructive CAD. Apical anterior lateral wall motion abnormality possibly stress-induced versus plaque rupture with spontaneous recannulation. Suspect stress induced in the setting of sepsis/gram-negative bacteremia. Suspect GI source. Continue current medical therapy with aspirin, statin, MARYAM inhibitor, and beta-gurinder therapy. Repeat resting 2D transthoracic echocardiogram in 4 weeks pending clinical course. (2) NSVT (nonsustained ventricular tachycardia): Resolved. Continue metoprolol 25 mg twice daily. (3) Ischemic cardiomyopathy: Preserved LV systolic function with apical wall motion abnormality. (4) Dyslipidemia: Continue statin therapy. Repeat fasting lipid panel and CMP in 6 weeks. (5) Fever: Secondary to gram-negative bacteremia. Suspect GI source. Continue antibiotics per medical service. Await sensitivities. Subjective 58 y/o patient seen and examined at bedside. No recurrent fevers overnight although reports subjective chills. Blood cultures positive for gram-negative bacilli in 1 bottle. One episode of recurrent diarrhea noted. Denies chest pain, shortness of breath, palpitations, lightheadedness, dizziness, syncope, or near syncope. No recurrent wide-complex tachycardia on telemetry. Review of Systems Review of Systems: All systems reviewed & are unremarkable except as noted in HPI & below Physical Exam Physical Exam: General: NAD, AAO x3, well nourished. HEENT: Normocephalic. Atraumatic. Conjunctiva pink, no scleral icterus. Neck: No carotid bruits, the carotid upstrokes are brisk. No JVD. No HJR Heart: Regular normal S-1 and S-2 no S-3 or S-4 gallop. No murmurs or rub appreciated. PMI is not displaced. No RV heave. Lungs: Clear bilateral without rales , rhonchi, or wheeze. Abdomen: Normal bowel sounds. Soft. Nontender. No masses or organomegaly. No abdominal bruits. Extremities: No clubbing, cyanosis, or edema. Pulses: radial=2/4, Dorsalis pedis =2/4, posterior tibial=2/4. Neuro: Cranial nerves grossly intact. No focal motor deficit. Results & Data Vital Signs (Past 12 Hours) Vital Signs Temp Pulse Pulse Resp BP Pulse Ox 09/15/18 09:37 75 105/65 09/15/18 07:40 36.6 C 51 L 18 99/63 L 96 09/15/18 03:44 37.4 C 61 18 112/70 94 09/14/18 23:59 56 L 09/14/18 23:54 36.8 C 59 L 17 103/71 97
--- NOTE | 2018-09-15 16:11 | Family Medicine Progress Note ---
Date of Service September 15, 2018 Assessment & Plan (1) Fever: 58-year-old male with history of hypertension, hyperlipidemia presenting with viral GI symptoms. Found to have elevated troponin and runs of wide complex tachycardia. Chest Discomfort/Elevated Troponin -pt with significant risk factorshyperlipidemia, hypertension, [id number] smoking history, family history of CAD/diabetes -DDx: Stress induced NSTEMI vs acute focal myocarditis -Trops: 0.638, 3.63, 7.57 -previous visit in 2017 for SILVA/HTN. Exercise stress echo and dobutamine stress echo were negative for inducible ischemia current Echo showing apical wall motion abnormality - Cardiology okay to sign off on patient for now and follow in office with Plan for repeat resting 2D transthoracic echocardiogram in 2 to 4 weeks -Will cont w/ ASA 81, Atorvastatin 80mg, Lisinopril 40mg, and metoprolol 25mg BID (titrated today) Febrile illness Acute onset of symptoms of fevers chills and rigors, but pt was having GI symptoms for about a day and a half prior to admit -Low grade fever that self resolved overnight, otherwise has been afebrile Culture positive for gram negative lissa - Likely an colitis/enteritis causing his diarrhea and bacteremia. Started on ceftriaxone, awaiting speciation and sensitivities Hypertension Continue home regimenamlodipine 10 mg, hydrochlorothiazide 25 mg, lisinopril 40 mg Mild Nonobstructive CAD As above, will cont ASA, statin, ACEi, and BB therapy BPH Continue tamsulosin 0.4 mg Patient reports resolution of symptoms of increased retention and foul-smelling urine. Will cont to monitor Asthma Continue home inhaler Headache and dizziness CT Head- normal -Resolved FEN/GI: Heart Healthy DVT prophylaxis: Lovenox Dispo: PCU Tele Full Code Supervising Physician Co-Signing Physician Notes I personally examined the patient and verified all alejandra points of history and exam, discussed case, and agree with decision making with Dr Leslie. Feeling better. No new issues, discussed positive blood culture. Case discussed with cardiology. Vitals noted, in general he is awake and alert pleasant no distress. HEENT normocephalic atraumatic mucous membranes moist. Breathing unlabored no accessory muscle use good effort. Skin shows no rashes no pallor or icterus. Mental status is good recent and remote recall normal mood and affect. Elevated troponin/wall motion abnormalityseems most likely to be vasospasm related secondary to his physiologic stress and hyperadrenergic state. Fortunately he does not show significant obstructive disease. Continue med management per cardiology as well as outpatient follow-up. This appears stable Diarrhea with gram-negative bacteremiaseems to be most likely a food poisoning mechanism, given his bacteremia, he was likely quite ill, explaining how he could have a diarrheal/febrile illness that leads to his cardiac findings as above. Continue Rocephin pending final ID and S, he does appear well at this time, so more than needing to intervene to improve his status, it is more treatments to ensure he does not worsen again. Stable for transfer to medical. DVT proph - lovenox Subjective Mr. Cantrell is resting comfortably this morning. He tells me he continues to experience diarrhea and his appetite has been much improved and he ate every bite of breakfast. He denies any abdominal pain, chest pain, rigors, chills, diaphoresis, heart palpitations and has no current concerns. We discussed his positive blood culture and what that would mean for him. He is disappointed to have to stay but understands. Review of Systems Review of Systems: All systems reviewed & are unremarkable except as noted in HPI & below Physical Exam Constitutional: WD/WN, vitals as above cooperative and comfortable Eyes: PERRL, conjunctivae normal, anicteric sclerae ENMT: external ear and nose normal, oropharynx normal Neck: trachea midline, no thyromegaly Respiratory: normal respiratory effort, lungs clear to auscultation Cardiovascular: RRR, no murmur, no edema Gastrointestinal (Abdomen): normal bowel sounds, soft, nontender, no hepatosplenomegaly Musculoskeletal: no cyanosis or clubbing, extremities motor strength 5/5 Skin: no rashes, warm and dry Neurologic: PERRL, EOMI, accommodation nl, no face palsy, no dysarthria Psychiatric: A+Ox3, euthymic affect Results & Data Vital Signs (Past 12 Hours) Vital Signs Temp Pulse Resp BP Pulse Ox 09/15/18 15:00 36.6 C 59 L 18 113/77 96 09/15/18 11:22 36.9 C 54 L 18 100/63 96 09/15/18 09:37 75 105/65 09/15/18 07:40 36.6 C 51 L 18 99/63 L 96 Resident Activity Tracking Resident Involvement: Resident Care Provided Care Provided: Adult [facility] Medicine
[2018-09-16] MEDS: ACETAMINOPHEN 325 MG TAB PO PRN (00:48)
[2018-09-16 06:20] LABS: Basophils # (auto) 0.03 K/uL (0-0.2); Basophils % (auto) 0.5 %; Eosinophils # (auto) 0.23 K/uL (0-0.5); Eosinophils % (auto) 4.2 %; Hemoglobin 13.4 g/dL (14.0-18.0); Immature Granulocytes # (auto) 0.02 K/uL (0.00-0.02); Immature Granulocytes % (auto) 0.4 %; Lymphocytes # (auto) 1.59 K/uL (1.2-3.4); Lymphocytes % (auto) 28.7 %; Mean Corpuscular Hgb Conc 34.4 g/dL (32-36); Mean Corpuscular Volume 81.4 fL (80-100); Mean Platelet Volume 10.1 fL (7.4-10.4); Monocytes % (auto) 16.2 %; Neutrophils # (auto) 2.77 K/uL (1.4-6.5); Platelet Count 221 K/uL (130-400); RDW Coefficient of Variation 13.8 % (11.5-14.5); RDW Standard Deviation 41.6 fL (36.4-46.3); Red Blood Count 4.79 M/uL (4.7-6.1); White Blood Count 5.54 K/uL (4.8-10.8)
[2018-09-16 07:00] LABS: BUN Creatinine Ratio 22.7 (10-20); Calcium 9.2 mg/dl (8.5-10.1); Est GFR (African American) 76.3; Est GFR (Non-African American) 65.8; Potassium 3.5 mmol/L (3.5-5.1)
[2018-09-16] MEDS: METOPROLOL TARTRATE 25 MG TAB PO SCH (08:26)
[2018-09-16] MEDS: AMLODIPINE BESYLATE 5 MG TAB PO SCH (08:26)
[2018-09-16] MEDS: ATORVASTATIN 40 MG TAB PO SCH (08:26)
[2018-09-16] MEDS: ASPIRIN 81 MG ECTAB PO SCH (08:26)
[2018-09-16] MEDS: LISINOPRIL 40 MG TAB PO SCH (08:26)
[2018-09-16] MEDS: cefTRIAXone SODIUM 2,000 MG in DEXTROSE 5% 50 ML IV SCH (08:26)
[2018-09-16] MEDS: hydroCHLOROthiazide 25 MG TAB PO SCH (08:26)
[2018-09-16] MEDS: TAMSULOSIN HCL 0.4 MG CAP PO SCH (08:26)
[2018-09-16] MEDS: ENOXAPARIN INJ 40 MG/0.4 ML SYR SQ SCH (08:27)
[2018-09-16] MEDS ORDERED: CEFEPIME 2,000 MG in SYRINGE 7.5 ML IV SCH (10:30)
--- NOTE | 2018-09-16 11:12 | Infectious Disease Consult ---
Date of Consultation September 16, 2018 Assessment & Plan (1) Pseudomonas sepsis: suspect gi translocation. clinically better but may benefit from abd ct. will change to po levaquin to complete 14 day course. repeat cultures pending. History of Present Illness Attending Physician: Lux Ramos DO pt admitted wtih gi illness, f/c, abd pain and diarrhea for 1 day dry cell tester. tmax in ER 38.3,blood cultures done in ER 1/2 sets now growing pansensitive pseudomonas, was initially on rocephin, now on cefepime, tolerating well. feeling much better. afebrile since admission, repeat cultures pending. wbc improved from 15 in ER to 5 today. eating well. denies any additional abd pain, no n/v, occan loose stool at night but much improved. afebrile. asking to go home. troponin elevated, found to have nstemi, cardio following, echo done this admission, no veg, repeat planned onoutpatient basis. UA negative, no gu symptoms. cxr, ct head negative. lyme negative, anaplasmosis abx pening. Allergies Allergy/AdvReac Type Severity Reaction Status Date / Time No Known Allergies Allergy Mild Verified 09/13/18 02:32 Home Medications Home Medications Medication Instructions Recorded Confirmed Type aspirin 81 mg tablet,delayed 81 mg PO DAILY 06/20/18 09/13/18 History release [id number]-keradtewsnykg-legtuggk 250 2 tab PO Q6H PRN 06/20/18 09/13/18 History mg-250 mg-65 mg tablet fluticasone furoate 100 1 inha INH DAILY 06/20/18 09/13/18 History mcg-vilanterol 25 mcg/dose inhalation powder hydrochlorothiazide 25 mg tablet 25 mg PO DAILY 06/20/18 09/13/18 History lisinopril 40 mg tablet 40 mg PO DAILY 06/20/18 09/13/18 History tamsulosin 0.4 mg capsule 0.4 mg PO DAILY 06/20/18 09/13/18 History amlodipine 10 mg PO DAILY 09/13/18 09/13/18 History Patient History Medical History Asthma (Chronic) Hypertension (Chronic) High cholesterol (Chronic) Surgical History H/O inguinal hernia repair History of appendectomy History of tonsillectomy H/O inguinal hernia repair History of appendectomy History of tonsillectomy Social History Preferred Language: Sinhala Communication Ability: Effective Restaurant Expeditor Required: No Beliefs That Will Affect Care: None Current Living Situation: Significant Other Current Living Situation Comment: primary caregiver for 17 year old grand daughter current occupational status: employed Feels Safe at Home: Yes Safety Concerns: Feels Safe At This Time Smoking Status: Never smoker Tobacco Type: cigarettes Cigarettes Per Day: 1 ppd Hx Alcohol Use: No Hx Substance Use: No Review of Systems Review of Systems: All systems reviewed & are unremarkable except as noted in HPI & below Physical Exam Constitutional: WD/WN, vitals as above Eyes: PERRL, conjunctivae normal, anicteric sclerae ENMT: external ear and nose normal, oropharynx normal Neck: normal visual inspection Respiratory: normal respiratory effort, lungs clear to auscultation Cardiovascular: RRR, no murmur, no edema Gastrointestinal (Abdomen): normal bowel sounds, soft, nontender, no hepatosplenomegaly Musculoskeletal: no cyanosis or clubbing, extremities motor strength 5/5 Skin: no rashes, warm and dry Psychiatric: A+Ox3, euthymic affect Results & Data Vital Signs (Past 12 Hours) Vital Signs Temp Pulse Resp BP Pulse Ox 09/16/18 08:16 36.9 C 72 16 106/75 93 09/15/18 23:55 37.3 C 55 L 20 114/74 96 Laboratory Results Microbiology 09/13/18 02:05 Blood Blood Culture - Preliminary Pseudomonas aeruginosa 09/13/18 02:16 Blood Blood Culture - Preliminary No growth to date.
--- NOTE | 2018-09-16 12:31 | Cardiology Progress Note ---
Date of Service September 16, 2018 Assessment & Plan (1) Non-ST elevation (NSTEMI) myocardial infarction: Urgent cardiac catheterization revealing nonobstructive CAD. Apical anterior lateral wall motion abnormality possibly stress-induced versus plaque rupture with spontaneous recannulation. Suspect stress induced in the setting of sepsis/Pseudomonas bacteremia. Continue current medical therapy with aspirin, statin, MARYAM inhibitor, and beta-gurinder therapy. Transition to Toprol- XL 50 mg daily at time of discharge. Repeat resting 2D transthoracic echocardiogram in 4 weeks pending clinical course. Patient requesting cardiology follow-up with the [facility] physicians group due to insurance coverage issues. (2) NSVT (nonsustained ventricular tachycardia): Resolved. Continue metoprolol 25 mg twice daily. (3) Ischemic cardiomyopathy: Preserved LV systolic function with apical wall motion abnormality. (4) Dyslipidemia: Continue statin therapy. Repeat fasting lipid panel and CMP in 6 weeks. Subjective Patient seen and examined at the bedside. Denies recurrent chest pain or unusual shortness of breath. No palpitations, lightheadedness, dizziness, syncope, or near syncope. No recurrent fevers. Offers no complaints this time. Daughter is present at bedside. Review of Systems Review of Systems: All systems reviewed & are unremarkable except as noted in HPI & below Physical Exam Physical Exam: General: NAD, AAO x3, well nourished. HEENT: Normocephalic. Atraumatic. Conjunctiva pink, no scleral icterus. Neck: No carotid bruits, the carotid upstrokes are brisk. No JVD. No HJR Heart: Regular normal S-1 and S-2 no S-3 or S-4 gallop. No murmurs or rub appreciated. PMI is not displaced. No RV heave. Lungs: Clear bilateral without rales , rhonchi, or wheeze. Abdomen: Normal bowel sounds. Soft. Nontender. No masses or organomegaly. No abdominal bruits. Extremities: No clubbing, cyanosis, or edema. Pulses: radial=2/4, Dors loren pedis =2/4, posterior tibial=2/4. Neuro: Cranial nerves grossly intact. No focal motor deficit. Results & Data Vital Signs (Past 12 Hours) Vital Signs Temp Pulse Resp BP Pulse Ox 09/16/18 08:16 36.9 C 72 16 106/75 93 Laboratory Results Laboratory Results - last 24 hr 09/13/18 09/16/18 09/16/18 12:15 05:48 05:48 WBC 5.54 RBC 4.79 Hgb 13.4 L Hct 39.0 L MCV 81.4 MCH 28.0 MCHC 34.4 RDW Std Deviation 41.6 RDW Coeff of Laura 13.8 Plt Count 221 MPV 10.1 Immature Gran % (Auto) 0.4 Neut % (Auto) 50.0 Lymph % (Auto) 28.7 [place] % (Auto) 16.2 Eos % (Auto) 4.2 Baso % (Auto) 0.5 Immature Gran # (Auto) 0.02 Neut # (Auto) 2.77 Lymph # (Auto) 1.59 [place] # (Auto) 0.90 H Eos # (Auto) 0.23 Baso # (Auto) 0.03 Peripher Smr Path Cons Sodium 139 Potassium 3.5 Chloride 107 Carbon Dioxide 23 Anion Gap 9.0 BUN 27 H Creatinine 1.20 Est Cr Clr Drug Dosing 76.0 Est GFR ( Amer) 76.3 Est GFR (Non-Af Amer) 65.8 BUN/Creatinine Ratio 22.7 H Glucose 104 H Calcium 9.2
[2018-09-16 15:55] VITALS: BP 113/74; TEMP 97.9; O2SAT 97
[2018-09-16 16:57] VITALS: PULSE 81
--- NOTE | 2018-09-16 17:23 | Discharge Summary ---
Date of Service September 16, 2018 Admission HPI Per Admitting Provider 58-year-old male with a past medical history of hypertension, hyperlipidemia presents to the emergency room after acute onset of body aches, vomiting, fever/chills at approximately 8 PM tonight. He also complained of a burning sensation over both sides of his neck and on the left side of his torso. He states that he threw up 3 times after the onset of the symptoms. He does report having diarrhea last night and into the morning. He endorses a very poor appetite over the past day and a half. In addition, he had dizziness and a headache. He has a past medical history of BPH and reports that retention issues have gotten worse recently. He denies having to self catheterize. He reports being outdoors in the [place] frequently with his dog. Cardiovascular risk factors include hyperlipidemia, hypertension, [id number] smoking history. He denies having history of angina or cardiac catheterization. His mother has a history of coronary artery disease and diabetes. HEENT; patient denies sore throat, runny nose Respiratory; denies cough, shortness of breath CV; left-sided torso burning sensation, lasting a duration of approximately 1 hour Admission Exam Per Admitting Provider Constitutional: WD/WN, vitals as above Eyes: PERRL, conjunctivae normal, anicteric sclerae ENMT: external ear and nose normal, oropharynx normal Neck: trachea midline, no thyromegaly Respiratory: normal respiratory effort, lungs clear to auscultation Cardiovascular: RRR, no murmur, no edema Gastrointestinal (Abdomen): normal bowel sounds, soft, nontender, no hepatosplenomegaly Musculoskeletal: no cyanosis or clubbing, extremities motor strength 5/5 Skin: no rashes, warm and dry Neurologic: PERRL, EOMI, accommodation nl, no face palsy, no dysarthria Psychiatric: A+Ox3, euthymic affect Principal Diagnosis Pseudomonal bacteremia Discharge Exam Constitutional WD/WN, vitals as above cooperative and comfortable Eyes PERRL, conjunctivae normal, anicteric sclerae ENMT external ear and nose normal, oropharynx normal Neck trachea midline, no thyromegaly Respiratory normal respiratory effort, lungs clear to auscultation Cardiovascular RRR, no murmur, no edema Gastrointestinal (Abdomen) normal bowel sounds, soft, nontender, no hepatosplenomegaly Musculoskeletal no cyanosis or clubbing, extremities motor strength 5/5 Skin no rashes, warm and dry Neurologic PERRL, EOMI, accommodation nl, no face palsy, no dysarthria Psychiatric A+Ox3, euthymic affect Discharge Data Allergies Allergy/AdvReac Type Severity Reaction Status Date / Time No Known Allergies Allergy Mild Verified 09/13/18 02:32 Consultations 09/13/18 03:32 ED Decision to Admit Stat 09/13/18 09:32 Consult Cardiology Routine 09/16/18 10:39 Consult Infectious Diseases Routine Procedures Performed Operation Date: 09/13/18 15:05 Actual Procedures p Cath, Left with Cors and Vent - Tl Sims MD s Cineradiography w/Routine Exam(Not Applicable) - Tl Sims MD Ordered Studies 09/13/18 01:51 CT head/brain wo con Urgent No intracranial abnormalities 09/13/18 15:08 CL Cath Imgs for PACS use only Stat Moderate CAD no arteries severely constricted, no intervention Hospital Course (1) Fever: 58-year-old male with history of hypertension, hyperlipidemia presenting with viral GI symptoms. Found to have elevated troponin and runs of wide complex tachycardia. Elevated Troponin Patient with risk factors for CAD and elevated troponins (3.63, 7.57, 3.80) six hours apart on admission Likely secondary to Stress induced NSTEMI vs acute focal myocarditis, wall motion abnormality on echo, will follow up with [facility] in next two weeks and will have follow up echocardiogram at that time. Patient Will cont w/ ASA 81, Atorvastatin 80mg, Lisinopril 40mg, and metoprolol 25mg BID Pseudomonal Bacteremia Acute onset of symptoms, fever, chills dizziness fatigue. Was placed on doxycycline on admission, then ceftriaxone after initial blood cultures revealed a gram negative lissa. Surprisingly that was speciated as a mendoza sensitive pseudomonas today and we switched him to levaquin for 14 days. He will finish his course of antibiotics on september 29. Source of infection is not entirely clear as patient does not have any obvious source and is not immunocompromised. Possibly random gut translocation. ID consulted, patient may benefit from CT scan in future if any sign of abdominal pain or worsening symptoms. Hypertension amlodipine 10 mg, hydrochlorothiazide 25 mg, lisinopril 40 mg, added metoprolol tartrate Mild Nonobstructive CAD As above, will cont ASA, statin, ACEi, and BB therapy Total Time Total Time Spent Total Time Spent (In Minutes): <30 Discharge Plan Discharge Items Patient Disposition: Home - Self-Care Reason For Visit: ELEVATED TROPONIN Discharge Diagnosis: Pseudomonas bacteremia Condition: Fair Discharge Goals: Therapeutic intervention Activity: Resume your previous activity Non-emergency contact: Primary Care Provider Call non-emergency contact if: you have any medication questions and your temperature is above 100.5 Follow-up/Referrals: Clark Meza MD [Primary Care Provider] - Diet: Regular and Heart Healthy Addtl Provider Instructions: Mr. Cantrell, It has been my absolute pleasure to meet, evaluate, and treat you in the hospital. We believe that you have a pseudomonas aeruginosa infection in your bloodstream, likely the result of translocation from your gut possibly due to an inflammation of your intestines which was causing your diarrhea. We will be treating you with a fourteen day course of antibiotics that will be sent to your pharmacy on discharge. The antibiotic is called levaquin, it is to be taken twice a day for fourteen days total finishing on september 30. This medication does have possible side effects including but not limited to tendonitis and even tendon rupture so if you are noticing any symptoms please alert your primary physician. If you begin to develop fevers, worsening diarrhea, abdominal pain, chills, or any other concerning symptoms please return to medical care. You also had evidence of a damage to your heart. Cardiology evaluated you and feels this is likely secondary to either stress secondary to your initial infection, or a focal myocarditis. As we saw a slight elevation in your cardiac enzyme levels we will be sending you home on some medications to protect your heart and blood vessels. These new medications to be taken along with your current meds are metoprolol tartrate 25 mg twice a day and Atorvastatin 80 mg once a day. You are to follow up with cardiology in the next two weeks. If you have any chest pain or worsening shortness of breath especially with activity please return to medical care without delay. Prescriptions: New levofloxacin 500 mg Tablet 500 mg PO DAILY@1100 14 Days Qty: 28 RF: 0 atorvastatin 40 mg Tablet 80 mg PO QAM 30 Days Qty: 30 RF: 0 metoprolol tartrate 25 mg Tablet 25 mg PO BID 30 Days Qty: 60 RF: 0 atorvastatin 80 mg tablet 80 mg PO DAILY Qty: 30 RF: 0 metoprolol tartrate 25 mg tablet 25 mg PO BID 30 Days Qty: 60 RF: 0 Continued aspirin [Adult Low Dose Aspirin] 81 mg tablet,delayed release (DR/EC) 81 mg PO DAILY RF: 0 tamsulosin 0.4 mg capsule 0.4 mg PO DAILY RF: 0 hydrochlorothiazide 25 mg tablet 25 mg PO DAILY RF: 0 lisinopril 40 mg tablet 40 mg PO DAILY RF: 0 cflhuuz-vnlbzowzvqixp-wdfvjkgs [Excedrin Extra Strength] 250-250-65 mg tablet 2 tab PO Q6H PRN (Reason: Pain) RF: 0 fluticasone furoate-vilanterol [Breo Ellipta] 100-25 mcg/dose blister with device 1 inha INH DAILY RF: 0 amlodipine 10 mg Tablet 10 mg PO DAILY RF: 0 Stand-Alone Forms: [facility]/Other Patient Handouts: Levofloxacin Oral tablet Discharge Orders: Discharge Order (Routine); Ordered 09/16/18 Ordered By: Tone Leslie Admission Data Admit Date/Time: 09/15/18 08:38 Attending Provider: Lux Ramos Admit Provider: Cecilia Rivera Primary Care Provider: Clark Meza V. Other Providers: Pham Dubon ; Natanael Cameron ; Cecilia Rivera ; Cain Murray Service: Medical Other Interventions: Discharge Summary Assessment (RN) Last Done: 09/16/18 16:55 Supervising Physician Co-Signing Physician Notes I personally examined the patient and verified all alejandra points of history and exa m, discussed case, and agree with decision making with Dr Leslie. Feeling better. No fevers no diarrhea. Infectious disease input greatly appreciated. Vitals noted, in general he is awake and alert pleasant no distress. HEENT normocephalic atraumatic mucous membranes moist. Breathing unlabored no accessory muscle use good effort. Skin shows no rashes no pallor or icterus. Pseudomonas enteritis with bacteremiacertainly the severity of his illness may account for his "cardiac fallout" which was likely caused by vasospasm. Fortunately he is improved nicely and appears to be stable for home. Given lack of clear risks for this, we had infectious disease see him, but fortunately they only saw the need for treatment, not a clear-cut underlying etiology. CT abdomen pelvis could be pursued if he has lingering symptoms or any hint of recurrence. We discussed risks and benefits of fluoroquinolones given new or concerns, but discussed that overall the low risk of serious problems with faye quinolones seemed to be less than the risk entailed with prolonged IV treatment and the ancillary problems that can arise. Stable for home on 2 weeks of fluoroquinolone. Resident Activity Tracking Resident Involvement: Resident Care Provided Care Provided: Adult Hospital Medicine
[2018-09-17] MEDS ORDERED: levoFLOXacin 500 MG TAB PO SCH (11:00)
[2018-09-17 17:38] LABS: Anaplasma phagocytophila IgM <1:20 (<1:20); Ehrlichia chaff IgG Ab <1:64 (<1:64); Ehrlichia chaff IgM Ab <1:20 (<1:20)
== END 2018-09-16 18:30 | disposition home or self-care (01) | DRG 281 ==
LOC: ED 01:28 → 2N 01:28 → SUATTDRO 05:24 → 2N 05:49 → 2S 16:14 → 4E 09-15 15:09